=== PATIENT | female | born 2000 | race Caucasian/White ===

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

== ENCOUNTER → 2022-01-01 | Outpatient (CLI) | payer OTHER, SELFPAY ==
[2022-01-01 18:19] LABS: T4 Free Direct 1.24 ng/dL (0.76-1.46); Thyroid Stim Hormone (TSH) 1.54 uIU/mL (0.358-3.74)
== END | disposition home or self-care (01) ==
LOC: LAB 17:22
PROVIDERS: PCP Family Medicine; Visit Provider Family Medicine
DX: E03.9 Hypothyroidism, unspecified (principal)
CPT/HCPCS: 36415; 84439; 84443

== ENCOUNTER → 2022-02-23 | Outpatient (CLI) | payer OTHER, SELFPAY ==
[2022-02-23 14:37] LABS: Erythrocyte Sedimentation Rate 6 mm/hr (0-30)
[2022-02-23 15:30] LABS: ALB/GLOB Ratio 1.1 RATIO (0.9-2.4); AST(SGOT) 23 U/L (15-37); Alanine Aminotransfer ALT/SGPT 31 U/L (13-56); Albumin, Serum 3.9 g/dL (3.2-5.0); Alkaline Phosphatase 62 U/L (45-117); Anion Gap 6 (5-15); BUN 11 mg/dL (7-18); BUN/Creat Ratio 16.3 RATIO (10-20); Calcium,Total 9.1 mg/dL (8.5-10.1); Chloride 105 mmol/L (98-107); Creatinine, Serum 0.67 mg/dL (0.55-1.02); EST Glomerular Filtration Rate 119 mL/min (>60); Est Glom Filt Rate - Afr Amer 143 mL/min (>60); Globulin 3.6 g/dL (2.2-4.2); Glucose 73 mg/dL (74-106); Potassium 3.7 mmol/L (3.5-5.1); Protein, Total 7.5 g/dL (6.4-8.2); Sodium Level 140 mmol/L (136-145)
[2022-02-24 09:02] LABS: Vitamin B12 545 pg/mL (211-911)
[2022-03-01 03:07] LABS: Ceruloplasmin 49.6 mg/dL (19.0-39.0)
[2022-03-01 16:56] LABS: Arsenic 7245 10 ug/L (0-9); Copper, Serum or Plasma 215 ug/dL (80-158); Lead, Blood < 1 ug/dL (0-4)
== END | disposition home or self-care (01) ==
PROVIDERS: PCP Family Medicine; Referring Provider Psychiatry & Neurology Neurology; Visit Provider Psychiatry & Neurology Neurology
DX: G25.0 Essential tremor (principal)
CPT/HCPCS: 36415; 80053; 82140; 82175; 82390; 82525; 82607; 83655; 83825; 85652

== ENCOUNTER → 2022-04-13 | Outpatient (CLI) | payer OTHER, SELFPAY ==
[2022-04-13 16:54] LABS: ALB/GLOB Ratio 1.1 RATIO (0.9-2.4); AST(SGOT) 21 U/L (15-37); Alanine Aminotransfer ALT/SGPT 28 U/L (13-56); Albumin, Serum 3.9 g/dL (3.2-5.0); Alkaline Phosphatase 62 U/L (45-117); Anion Gap 7 (5-15); BUN 18 mg/dL (7-18); BUN/Creat Ratio 23.9 RATIO (10-20); Calcium,Total 8.7 mg/dL (8.5-10.1); Chloride 105 mmol/L (98-107); Creatinine, Serum 0.75 mg/dL (0.55-1.02); EST Glomerular Filtration Rate 104 mL/min (>60); Est Glom Filt Rate - Afr Amer 126 mL/min (>60); Globulin 3.6 g/dL (2.2-4.2); Glucose 82 mg/dL (74-106); Potassium 3.8 mmol/L (3.5-5.1); Protein, Total 7.5 g/dL (6.4-8.2); Sodium Level 139 mmol/L (136-145); T4 Free Direct 1.38 ng/dL (0.76-1.46); Thyroid Stim Hormone (TSH) 2.54 uIU/mL (0.358-3.74)
[2022-04-18 00:06] LABS: Ceruloplasmin 44.9 mg/dL (19.0-39.0)
[2022-04-18 09:04] LABS: Copper, Serum or Plasma 185 ug/dL (80-158)
== END | disposition home or self-care (01) ==
LOC: LAB 14:58
PROVIDERS: PCP Family Medicine; Visit Provider Psychiatry & Neurology Neurology
DX: G25.0 Essential tremor (principal)
CPT/HCPCS: 36415; 80053; 82390; 82525; 84439; 84443

== ENCOUNTER → 2024-03-17 | Outpatient (CLI) | payer BC, SELFPAY ==
[2024-03-17 17:38] LABS: T4 Free Direct 1.26 ng/dL (0.76-1.46); Thyroid Stim Hormone (TSH) 1.48 uIU/mL (0.358-3.74)
== END | disposition home or self-care (01) ==
LOC: LAB 16:45
PROVIDERS: PCP Family Medicine; Referring Provider Internal Medicine Endocrinology, Diabetes & Metabolism; Visit Provider Internal Medicine Endocrinology, Diabetes & Metabolism
DX: E03.9 Hypothyroidism, unspecified (principal)
CPT/HCPCS: 36415; 84439; 84443

== ENCOUNTER → 2024-05-22 | Outpatient (CLI) | payer BC, SELFPAY ==
[2024-05-22 17:57] LABS: Cholesterol 172 mg/dL (200); High Density Lipoprotein 63 mg/dL; Triglycerides 109 mg/dL; Very Low Density Lipoprotein 22 mg/dL (5-40)
== END | disposition home or self-care (01) ==
LOC: MFPLAB 15:29
PROVIDERS: PCP Family Medicine; Visit Provider Family Medicine
DX: Z13.220 Encounter for screening for lipoid disorders (principal)
CPT/HCPCS: 36415; 80061

== ENCOUNTER → 2025-02-08 | Outpatient (CLI) | payer BC, SELFPAY ==
[2025-02-08 12:53] LABS: Absolute Lymphocyte Count 2.16 X10^3/uL (0.83-4.51); Absolute Neutrophil Count 2.3 X10^3/uL (2.0-7.7); Basophil# 0.02 X10^3/uL; Basophil% 0.4 % (0-1); Hematocrit 39.7 % (37-47); Hemoglobin 13.4 g/dL (12.0-15.0); Lymphocyte # 2.16 X10^3/ul (0.83-4.51); Lymphocyte % 42.8 % (19-41); Mean Corp Hgb Conc 33.8 g/dL (32-36); Mean Corpuscular Volume 85.9 fL (81-99); Mean Platelet Vol. 9.4 fl (6.2-12.0); Monocyte# 0.42 X10^3/uL; Monocyte% 8.3 % (0-10); NRBC Flagged by Analyzer 0 % (0-5); Neutrophil # 2.34 X10^3/uL (2.7-7.7); Neutrophil % 46.3 % (47-70); Platelet Count 217 K/mm3 (150-450); RBC Distribution Width CV 12.4 % (11.6-14.6); RBC Distribution Width SD 38.7 fl (35.1-43.9); Red Blood Count 4.62 M/mm3 (4.2-5.4); White Blood Count 5.1 K/mm3 (4.4-11.0)
[2025-02-08 14:00] LABS: ALB/GLOB Ratio 1.6 RATIO (0.9-2.4); AST(SGOT) 19 U/L (<=31); Alanine Aminotransfer ALT/SGPT 14 U/L (<=34); Albumin, Serum 4.5 g/dL (3.5-5.0); Alkaline Phosphatase 68 U/L (35-104); Anion Gap 13 (5-15); BUN 15 mg/dL (4-19); BUN/Creat Ratio 18.1 RATIO (10-20); Calcium,Total 9.2 mg/dL (7.6-11.0); Carbon Dioxide 23.2 mmol/L (21.0-32.0); Chloride 104 mmol/L (98-108); Creatinine, Serum 0.82 mg/dL (0.70-1.20); EST Glomerular Filtration Rate 103 (>60); Globulin 2.8 g/dL (2.2-4.2); Glucose 71 mg/dL (70-99); Potassium 4.1 mmol/L (3.3-5.1); Protein, Total 7.3 g/dL (5.9-8.4); Sodium Level 140 mmol/L (133-145); Total Bilirubin 0.59 mg/dL (0.00-1.30)
[2025-02-08 14:22] LABS: Free T3 2.6 pg/mL (2.18-3.98); T3 Total - Triiodothyronine 1.09 ng/mL (0.80-2.00)
--- OUTSIDE RECORDS SUMMARY | 2025-02-08 22:07 | XMS RPT_ITS | CCD ---
Author Organization [facility] Care Team Providers Care Benefits Counselor Name Role Phone Dr. Alena Archuleta Primary Care Provider Dr. Alena Archuleta Referring Provider Quinn IS ARCHITECT, ROWAN Winter Attending Provider Alena Archuleta Unavailable Unavailable Unavailable Dr. Maggie Montes Attending Unavailable Geremias, Dr. Alena Rodríguez Primary Care Unavail able Dr. Maggie Montes Referring Unavailable Geremias, Dr. Alena Rodríguez Primary Care Unavail able Dr. Maggie Montes Referring Unavailable Dr. Maggie Montes Attending Unavailable Alena Archuleta MD Primary Care Provider 1( [phone] MAGGIE MONTES Attending Unavailable ALENA ARCHULETA Primary Care Unavailable DAQUAN OSCAR Attending Unavailable ALENA ARCHULETA Primary Care Unavailable ALENA ARCHULETA Primary Care Unavailable Alena Archuleta MD Primary Care Provider CAMDEN BERNARDO Attending Unavailable MAGGIE MONTES Referring Unavailable INGRIDIFFALEAN REYES Primary Care Unavailable FRANKIE SANCHEZ Attending Unavailable JOLLIFF ALENA REYES Primary Care Unavailable Jolliff, Alena S Referring Unavailable Jolliff, Alena S Primary Care Unavailable Mono Galeas NP Attending Unavailable Rigoberto Groevr Attending Unavailable ReillyRigoberto Referring Unavailable Jolliff, Alena S Primary Care Unavailable Jolliff, Alena S Attending Unavailable Jolliff, Alena S Primary Care Unavailable Jolliff, Alena S Referring Unavailable Oj Lai Attending Unavailable Jolliff, Alena S Primary Care Unavailable Jolliff, Alena S Referring Unavailable Alena Archuleta Primary Care Unavailable Rigoberto Grover Attending Unavailable Alena Archuleta Referring Unavailable Alena Archuleta Primary Care Unavailable Maggy Ball NP Attending Unavailable Allergies Allergy Classification Reported Allergen(s) Allergy Type Date of Onset Reaction(s) Facility (5 sources) carbinoxamine / Pseudoephedrine; Translations: [CARBINOXAMINE-PS EUDOEPHEDRINE] Drug Allergy 3 Hives, Fever [facility] (1 source) Seasonal Allergies: Uncoded; Translations: [Seasonal Allergies: Uncoded] Propensity to adverse reactions (disorder) 5 [facility] Repository Medications Current Medications Medication Drug Class(es) Dates Sig (Normalized) Sig (Original) cetirizine hydrochloride 10 mg oral capsule (3 sources) Histamine-1 Receptor Antagonist Start: 10-02-2021 take 1 capsule by mouth once daily Cetirizine (Zyrtec) 10 mg capsule Active 10 MG PO DAILY October 02, 2021 1:00am Desogestrel-Ethinyl Estradiol (10 sources) Progestin, Estrogen Start: 03-26-2022 Desogestrel-Ethin yl Estradiol (Apri) 0.15-0.03 mg tablet Active 1 TABLET PO daily March 26, 2022 10:24am Start: 12-11-2021 End: 03-26-2022 Desogestrel-Ethinyl Estradio l (Apri) 0.15-0.03 mg tablet Discontinued 1 TABLET PO daily December 11, 2021 4:30pm March 26, 2022 10:25am Start: 12-11-2021 Desogestrel-Et hinyl Estradiol (Apri) 0.15-0.03 mg tablet Active 1 TABLET PO daily December 11, 2021 4:30pm Start: 10-02-2021 End: 12-11-2021 Desogestrel-Ethinyl Estradio l (Apri) 0.15-0.03 mg tablet Discontinued 1 TABLET PO daily October 02, 2021 4:02pm December 11, 2021 4:31pm Start: 10-02-2021 End: 12-11-2021 Desogestrel-Ethinyl Estradio l (Apri) 0.15-0.03 mg tablet Discontinued 1 TABLET PO daily October 02, 2021 1:00am December 11, 2021 4:31pm desogestreL-ethi nyl estradioL (Apri) 0.15-0.03 mg tablet Take 1 tablet by mouth once daily. Active desogestreL-ethi nyl estradioL (Apri) 0.15-0.03 mg tablet Take 1 tablet by mouth once daily. 0 Active levothyroxine sodium 0.05 mg oral capsule (9 sources) l-Thyroxine Start: 10-02-2021 take 62.5 ug by mouth once daily Levothyroxine Active 62.5 MCG PO DAILY October 02, 2021 3:54pm Start: 10-02-2021 End: 10-02-2021 take 75 ug by mouth once daily Levothyroxine Discontin ued 75 MCG PO DAILY October 02, 2021 1:00am October 02, 2021 3:54pm take 1 tablet by ivon th once daily before mealtime levothyroxine (Synthroid, Levoxyl) 50 mcg tablet Take 1 tablet (50 mcg) by mouth once daily in the morning. Take before meals. TAKE DIRECTED Active Multivitamin preparation (3 sources) Start: 10-02-2021 take 1 tablet by mouth once daily Multivitamin Active 1 TABLET PO DAILY October 02, 2021 3:45pm Start: 10-02-2021 take 1 tablet by ivon th once daily Multivitamin Active 1 TABLET PO DAILY October 02, 2021 1:00am polyethylene glycol 3350 03179 mg powder for oral solution (3 sources) Osmotic Laxative Start: 10-02-2021 Polyethylene Glycol 3350 (Miralax) 17 gram/dose powder Active 17 GM PO DAILY October 02, 2021 1:00am propranolol hydrochloride 20 mg oral tablet (3 sources) beta-Adrenergic Mitch Start: 02-28-2024 take 1.5 tablets by mouth twice daily propranolol (Inderal) 20 mg tablet Indications: Essential tremor Take 1.5 tablets (30 mg) by mouth 2 times a day. 270 tablet 3 02/28/2024 Active Start: 08-29-2023 End: 02-28-2024 take 1 tablet by mouth twice daily propranolol (Inderal) 20 mg tablet Indications: Essential tremor Take 1 tablet (20 mg) by mouth 2 times a day. 60 tablet 5 08/29/2023 02/28/2024 Discontinued (Reorder) Completed/Discontinued Medications Medication Drug Class(es) Dates Sig (Normalized) Sig (Original) Norethindrone-Ethi n Estradiol (3 sources) Estrogen Start: 10-02-2021 End: 10-02-2021 take 0.75699431397759851 ug by mouth once daily Norethindrone-Ethin Estradiol (Nortrel 1/35 (21)) 1-35 mg-mcg (21) tablet Discontinued 1 TABLET PO DAILY October 02, 2021 3:44pm October 02, 2021 4:02pm Start: 10-02-2021 End: 10-02-2021 take 0.48201332562064521 ug by mouth once daily Norethindrone-Ethin Estradiol (Nortrel 1/35 (21)) 1-35 mg-mcg (21) tablet Discontinued 1 TABLET PO DAILY October 02, 2021 1:00am October 02, 2021 4:02pm gabapentin 100 mg oral capsule (8 sources) Anti-epileptic Agent Start: 04-04-2023 End: 02-28-2024 take 2 capsules by mouth three times daily Gabapentin 100 MG Oral Capsule TAKE 2 CAPSULES 3 TIMES DAILY. Quantity: 540 Refills: 3 Ordered: 04-Apr-2023 Maggie Montes MD Start : 04-Apr-2023 Active Can increase to 300mg three times a day for essential tremor if symptoms not controlled and not too sleepy Problems Active Problems Problem Classification Problem Date Documented Da te Episodic/Chronic Menstrual disorders (5 sources) Menorrhagia; Translations: [Excessive and frequent menstruation with regular cycle] Chronic Other hereditary and degenerative nervous system conditions (4 sources) Essential tremor; Translations: [Essential tremor] Onset: 08-29-2023 Chronic Other hereditary and degenerative nervous system conditions (2 sources) Essential tremor; Translations: [Essential tremor] Onset: 08-29-2023 Chronic Other nervous system disorders (4 sources) Tremor, unspecified; Translations: [Tremor, unspecified] Onset: 04-23-2023 Episodic Other nutritional; endocrine; and metabolic disorders (1 source) Disorder of copper metabolism; 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, unspecified] 01-27-2024 Chronic Other nutritional; endocrine; and metabolic disorders (2 sources) Disorder of copper metabolism, unspecified; 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, unspecified (Multi)] Onset: 01-27-2024 Chronic Other upper respiratory infections (2 sources) Acute upper respiratory infection, unspecified; Translations: [Acute pharyngitis, unspecified] Onset: 01-09-2024 Episodic Thyroid disorders (4 sources) Hypothyroidism; Translations: [Hypothyroidism, unspecified] Onset: 08-13-2023 Chronic Past or Other Problems Problem Classification Problem Date Documented Da te Episodic/Chronic Other nervous system disorders (8 sources) Tremor; Translations: [Abnormal involuntary movements] Onset: 06-23-2023 06-23-2023 Episodic Other screening for suspected conditions (not mental disorders or infectious disease) (8 sources) Raised blood copper level; Translations: [Other abnormal blood chemistry] Onset: 06-23-2023 06-25-2023 Episodic Unclassified (3 sources) Onset: 06-25-2023 Resolved: 01-27-2024 06-25-2023 Results Test Name Value Interpretation Reference Range Facility Urgent Care Visit Reporton 0 10-23-2024 Urgent Care Visit Report [facility] [address], [address] [place] [address] OFFICE VISIT Date of Service: 10/23/24 MR#: [id number] Acct: [id number] Name: BAMBI FRAGOSO BRIAN Rep #: [id number] : 2000 Provider: ROWAN veronica Age/Sex: 24/F Location[place] [facility] [place] Status: Signed Intake Vital Signs 08/31/24 13:18 10/23/24 13:34 Height 5 ft 8 in BP 106/60 Blood Pressure Location Lt brachial Position Sitting Respiration 14 Pulse 71 Pulse Source NIBP Temp 97.9 F Temp Source Oral Pulse Oximetry (%) 96 Oxygen Delivery Method room air Intake Visit Reasons: travel for work congestion cough headache BA Chief Complaint: Pal, BA, cough, congest 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 recent travel for work. denies fever, ST PFSH Medical History Constipation Benign essential tremor Raynauds disease Asthma Hypothyroidism Surgical History History of placement of ear tubes Family History Mother Beena-Danlos syndrome Father Prostate cancer Grandfather Heart disease Sister Beena-Danlos syndrome Social History household members: family Smoking Status: Never smoker alcohol intake: never substance use type: does not use diet: other what type of physical activity do you participate in: walking seatbelt use: always do you feel safe at home: Yes additional social history: single HPI HPI Chief Complaint: Pal, BA, cough, congest Details: BAMBI FRAGOSO, is a 24 F who presents to the office today for concerns regarding headache, body ache, cough, and congestion for the last 3 days. She does acknowledge recent travel for work. She denies fever or sore throat. Prior to evaluation, she underwent respiratory viral panel that is negative for Flu A, Flu B, and COVID-19. ROS Const Constitutional: Positive for body ache, chills, headache(s) and change in appetite (reduced); No fatigue, fever(s), night sweats, snoring or abnormal sleep pattern Eyes Eyes: No blurry vision, change in vision, double vision, irritation, discharge, vision loss, dry eyes, bulging eyes, floaters, visual disturbances, eye pain, Light sensitivity, spots in vision, tunnel vision or other ENT ENT: Positive for nasal congestion, sinus pressure, sinus pain (worse when bending over), nasal discharge (Yellow), headache(s) and hoarseness; No ear or mastoid pain, ear discharge, ear pressure, tinnitus, dizziness/vertigo, nosebleed/epistaxis, nose pain, post nasal drip, facial pain, dental pain, difficulty swallowing, bad breath, lip swelling, mouth lesions, mouth pain, neck pain, sore throat, tongue swelling or throat swelling Resp Respiratory: Positive for cough Cough: Yes non-productive; No change in phlegm color, chest congestion, hemoptysis, pain on inspiration, shortness of breath, pain with cough, snoring, stridor or wheezing Cardio Cardiology: No chest pain at rest, chest pain with exertion, shortness of breath, dyspnea on exertion or lightheadedness Gastro GI: No abdominal pain, change in bowel habits, constipation, diarrhea, difficulty swallowing, nausea/dyspepsia or vomiting Genitourinary-Female: No burning urination or urinary frequency Musc Musculoskeletal: No joint pain or neck pain Skin Skin: No rash Neuro Neurology: Positive for headache(s); No visual disturbances Psych Psychiatric: No abnormal sleep pattern and Positive for change in appetite (reduced) Endo Endocrine: No fatigue Aller/Imm Allergy/Immunologic: No lip swelling, throat swelling, tongue swelling or wheezing Exam Const General: cooperative, healthy appearing, comfortable and no acute distress Orientation: alert, awake and oriented x3 HENMT Head: normal to inspection and normocephalic Ears: hearing grossly normal bilaterally, external ears normal and TM's normal bilaterally Nose: external nose normal, nares normal and no nasal discharge Face and sinus: normal facial exam and sinus tenderness ethmoid Mouth: oral mucosae normal, lip normal, tongue normal, oropharynx normal and moist mucous membranes Throat: posterior oropharynx normal, tonsils normal, uvula midline and no postnasal drainage Eyes General: appearance normal, both eyes and all related structures Neck Neck: normal visual inspection and no lymphadenopathy Carotids: normal carotid upstroke Lymphatic: no lymphadenopat (more content not included)... Normal [facility] Senior Java Programmer Office Visit Reporton 08-31-2024 Senior Java Programmer Office Visit Report [facility] [address], [address] [place] [address] OFFICE VISIT Date of Service: 08/31/24 MR#: [id number] Acct: [id number] Name: RICHMONDBAMBI ANN Rep #: [id number] : 2000 Provider: ROWAN robles Age/Sex: 24/F Location[place] [facility] [place] Status: Signed Intake Vital Signs 03/19/24 08:25 08/31/24 13:11 08/31/24 13:18 Height 5 ft 8 in 5 ft 8 in 5 ft 8 in Weight: 145 lb 147 lb 2 oz BMI 22.0 22.4 BP 100/63 110/72 Blood Pressure Location Lt brachial Position Sitting Pulse 66 Pulse Source Monitor Pulse Oximetry (%) 99 Oxygen Delivery Method room air 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: Annual Heel Cementer Machine Required: No Is patient in pain?: No Allergies Seasonal Allergies: Uncoded Allergy (Unknown, Verified 08/31/24 13:11) NEEDS FOLLOW-UP Medications ???Medication ???Instructions ???Recorded ???Confirmed ???Type multivitamin 1 tab PO DAILY 10/02/21 08/31/24 History cetirizine 10 mg capsule (Zyrtec) 10 mg PO DAILY 12/07/22 08/31/24 History psyllium husk 0.4 gram capsule 0.4 g PO DAILY 01/09/24 08/31/24 History (Metamucil) guar gum 1 tbsp PO DAILY 03/19/24 08/31/24 History propranolol 20 mg tablet 30 mg PO BID 03/19/24 08/31/24 History Enskyce 0.15 mg-0.03 mg tablet 1 tab PO QDAY #84 tabs 04/30/24 08/31/24 Rx (desogestrel-ethinyl estradiol) levothyroxine 75 mcg tablet 75 mcg PO .6 days/week #90 tabs 04/30/24 08/31/24 Rx Is last menstrual period known: Yes Last Menstrual Period: 08/03/24 Post menopausal: No Patient : No : No Control Method: OCP PFSH Medical History Constipation Benign essential tremor Raynauds disease Asthma Hypothyroidism Surgical History History of placement of ear tubes Family History Mother Beena-Danlos syndrome Father Prostate cancer Grandfather Heart disease Sister Beena-Danlos syndrome Social History household members: family Smoking Status: Never smoker alcohol intake: never substance use type: does not use diet: other what type of physical activity do you participate in: walking seatbelt use: always do you feel safe at home: Yes additional social history: single History 0 Elective abortions Hx Para Spontaneous abortions Hx # Term Pregnancies Ectopic pregnancies Hx # Pregnancies Multiple births # of living children HPI Encounter for routine gynecological examination Details: BAMBI FRAGOSO is a 24 year old who presents for annual exam. Denies concerns. Never sexually active. Maternal grandmother with breast cancer. Negative genetics. Wishes to continue OCP for heavy menses. Declines pelvic exam Last mammogram: age 37 Female Reproductive History Last Menstrual Period: 08/03/24 Cycle Length: 21-35 Bleeding Duration: 5 Questions: metorrhagia: No and sexually active: No ROS Const Constitutional: Denies fatigue, weight gain or weight loss Cardio Card: Denies chest pain Resp Resp: Denies cough or dyspnea on exertion GI GI: Denies abdominal pain, bloating, change in stool character, constipation or vomiting : Reports as per HPI; Denies difficulty voiding, pelvic pain, urinary frequency, urinary incontinence, urinary urgency, vaginal discharge or vaginal pruritus Exam Const General: cooperative, healthy appearing, no acute distress and well developed Orientation: alert, oriented to person and oriented to place HENMT Head: normal to inspection Neck Neck: normal visual inspection Chest Breast inspection: normal inspection of the breasts and normal inspection of the axillae Breast palpation: normal palpation of the breasts, normal palpation of the axillae and no axillary lymphadenopathy Resp Effort Inspection: normal respiratory effort GI Palpation: soft, no masses and nontender Rectal Exam: deferred Neuro General: patient alert and patient oriented x3 Psych Affect: normal affect Coding Level of Care Code Off vis,est,prev 18-39yrs Diagnoses Encounter for gynecological examination without abnormal finding Z01.419 Gynecological examination findings: abnormal findings ABSENT Menorrhagia with regular cycle N92.0 Assessment and Plan Assessment and Plan (1) Encounter for routine gynecological examination: Qualifiers: Gynecological examination findings: abnormal findings ABSENT Qualified Code(s): Z01.419 - Encounter for gynecological examination (general) (routine) without abnormal findings (2) Menorrhagia with regular cycle: Status: Acute Plan Completed breast and (more content not included)... Normal [facility] Lipid Profileon 05-22-2024 Cholesterol [Mass/Vol] 172 mg/dL Normal 200 [facility] Comment on above: Result Comment: <200 mg/dL Desirable 200-240 mg/dL Borderline >240 mg/dL High Risk Performed By: #### L 500.4100 #### [facility] [address] [place], [address] Cholesterol in HDL [Mass/Vol] 63 mg/dL Normal [facility] Comment on above: Result Comment: The drugs N-Acetylcysteine and Metamizole may falsely depress this assay. Reference Range HDL <40 mg/dL Low HDL Cholesterol HDL >or= 60 mg/dL High HDL Cholesterol Performed By: #### L 500.4100 #### [facility] [address] [place], [address] Cholesterol in LDL [Mass/Vol] 87 mg/dL Normal 0-130 [facility] Comment on above: Performed By: #### L 500.4100 #### [facility] [address] [place], [address] Cholesterol in VLDL [Mass/Vol] 22 mg/dL Normal 5-40 [facility] Comment on above: Performed By: #### L 500.4100 #### [facility] [address] [place], [address] Triglyceride [Mass/Vol] 109 mg/dL Normal [facility] Comment on above: Result Comment: The drugs N-Acetylcysteine and Metamizole may falsely depress this assay. Serum Triglycerides Reference Interval Normal <150 mg/dL Borderline high 150 - 199 mg/dL High 200 - 499 mg/dL Very High > or = 500 mg/dL Performed By: #### L 500.4100 #### [facility] [address] [place], [address] Endocrinology Visit Reporton 03-19-2024 Endocrinology Visit Report [facility] [address] [place] [address]. [address] [place], [place] [id number] OFFICE VISIT Date of Service: 03/19/24 MR#: [id number] Acct: [id number] Name: BAMBI FRAGOSO BRIAN Rep #: [id number] : 2000 Provider: Harini Carcamo Age/Sex: 24/F [place] [facility] [place] Status: Signed Intake Vital Signs 01/09/24 11:01 03/19/24 08:25 Height 5 ft 8 in 5 ft 8 in Weight: 130 lb 145 lb BMI 19.8 22.0 BP 92/52 L 100/63 Blood Pressure Location Lt brachial Lt brachial Position Sitting Sitting Respiration 16 Pulse 80 66 Pulse Source Monitor Monitor Temp 98.9 F Temp Source Temporal Pulse Oximetry (%) 99 99 Oxygen Delivery Method room air room air Intake Visit Reasons: 1 Y FU 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 Accompanied by: Mother Is patient in pain?: No Allergies Seasonal Allergies: Uncoded Allergy (Unknown, Verified 03/19/24 08:28) NEEDS FOLLOW-UP Medications ???Medication ???Instructions ???Recorded ???Confirmed ???Type multivitamin 1 tab PO DAILY 10/02/21 03/19/24 History cetirizine 10 mg capsule (Zyrtec) 10 mg PO DAILY 12/07/22 03/19/24 History levothyroxine 50 mcg tablet 50 mcg PO .COMPLEX #36 tabs 06/20/23 03/19/24 Rx psyllium husk 0.4 gram capsule 0.4 g PO DAILY 01/09/24 03/19/24 History (Metamucil) desogestrel 0.15 mg-ethinyl 1 tab PO QDAY #28 tabs 03/04/24 03/19/24 Rx estradiol 0.03 mg tablet (Apri) guar gum 1 tbsp PO DAILY 03/19/24 03/19/24 History levothyroxine 75 mcg tablet 75 mcg PO .6 days/week #90 tabs 03/19/24 03/19/24 Rx propranolol 20 mg tablet 30 mg PO BID 03/19/24 03/19/24 History PFSH Medical History (Updated 03/19/24 @ 09:[address] Rigoberto Grover MD) Constipation Benign essential tremor Raynauds disease Asthma Hypothyroidism Surgical History History of placement of ear tubes Family History Mother Beena-Danlos syndrome Father Prostate cancer Grandfather Heart disease Sister Beena-Danlos syndrome Social History household members: family Smoking Status: Never smoker alcohol intake: never substance use type: does not use diet: other what type of physical activity do you participate in: walking seatbelt use: always do you feel safe at home: Yes additional social history: single HPI HPI Chief Complaint: Thyroid Details: BAMBI FRAGOSO, is a 24 F who presents to the office today for follow up. 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 TSH is 1.28 She has chronic constipation and it is worsened by being started on propranolol which seems to be making it worse. She is trying to eat a high fiber diet. She was told that oats are low in fiber and bread is high in fiber. ROS Const Constitutional: No anorexia, excessive sweating, malaise, night sweats, weight change or change in appetite Eyes Eyes: No change in vision ENT ENT: No hearing loss, nasal congestion or difficulty swallowing Cardio Cardiology: No chest pain at rest, excessive sweating, shortness of breath, dyspnea on exertion, irregular heart rhythm or palpitations Musc Musculoskeletal: No abnormal gait, joint pain, numbness or tingling Neuro Neurology: No abnormal gait, memory loss, numbness or tingling Psych Psychiatric: No change in appetite, No memory loss and No Thoughts of harming yourself/Others Resp Respiratory: No cough, chest congestion or shortness of breath Gastro GI: Positive for constipation; No difficulty swallowing Genitourinary-Female: No burning urination Skin Skin: No hair loss in leg, itchy eyes, rash or skin ulcer Endo Endocrine: No excessive sweating or weight change Aller/Imm Allergy/Immunologic: No itchy eyes Exam Const General: cooperative, healthy appearing, comfortable, no acute distress, well developed and not cushingoid Nutritional Appearance: well nourished Orientation: alert, awake and oriented x3 HENMT Head: normal to inspection Ears: hearing grossly normal bilaterally Nose: external nose normal Mouth: oral mucosae normal Eyes General: appearance normal, both eyes and all related structures Alignment and Position: alignment normal Periorbital: periorbital findings normal Eyelids: eyelids normal Conjunctivae: conjunctivae normal Neck Neck: normal visual inspection Neck mass: No Thyroid: thyroid normal Lymphatic: no lymphadenopathy noted Chest Chest palpation inspection: normal inspection of the chest Resp Effort Inspection: normal respiratory effort, able to speak in complete sentences, symmetric chest movement, no audible wheezes and no cough Auscultation: Bilateral: Clear to Auscultation Card (more content not included)... Normal [facility] T4 Free Directon 03-17-2024 T4 FREE DIRECT 1.26 ng/dL Normal 0.76-1.46 [facility] Comment on above: Performed By: #### L 506.0400, L501.9520 #### [facility] [address] [place], [address] Thyroid Stim Hormone (TSH)on 03-17-2024 TSH 1.48 uIU/mL Normal 0.358-3.74 [facility] Comment on above: Performed By: #### L 506.0400, L501.9520 #### [facility] [address] [place], [address] Urgent Care Visit Reporton 0 01-09-2024 Urgent Care Visit Report [facility] [address], [address] [place], [place] [address] OFFICE VISIT Date of Service: 01/09/24 MR#: [id number] Acct: [id number] Name: BAMBI FRAGOSO BRIAN Rep #: [id number] : 2000 Provider: ABBY Panchal Age/Sex: 23/F Location: [facility] Status: Signed Intake Vital Signs 08/26/23 09:39 01/09/24 06:43 01/09/24 11:01 Height 5 ft 8 in 5 ft 8 in 5 ft 8 in Weight: 130 lb BMI 19.8 BP 92/52 L Blood Pressure Location Lt brachial Position Sitting Respiration 16 Pulse 80 Pulse Source Monitor Temp 98.9 F Temp Source Temporal Pulse Oximetry (%) 99 Oxygen Delivery Method room air Intake Visit Reasons: SORE THROAT Chief Complaint: Sore throat Allergies Seasonal Allergies: Uncoded Allergy (Unknown, Verified 08/26/23 09:32) NEEDS FOLLOW-UP Medications ???Medication ???Instructions ???Recorded ???Confirmed ???Type multivitamin 1 tab PO DAILY 10/02/21 01/09/24 History cetirizine 10 mg capsule (Zyrtec) 10 mg PO DAILY 12/07/22 01/09/24 History levothyroxine 50 mcg tablet 50 mcg PO .COMPLEX #36 tabs 06/20/23 01/09/24 Rx desogestrel 0.15 mg-ethinyl 1 tab PO QDAY #84 tabs 08/26/23 01/09/24 Rx estradiol 0.03 mg tablet (Apri) azithromycin 250 mg tablet See Rx Instructions PO .COMPLEX #6 01/09/24 01/09/24 Rx tabs methylprednisolone 4 mg tablets in 4 mg PO PER PKG DIR 6 days #21 tabs 01/09/24 01/09/24 Rx a dose pack (Medrol (Kali)) propranolol 20 mg tablet 20 mg PO BID 01/09/24 01/09/24 History psyllium husk 0.4 gram capsule 0.4 g PO DAILY 01/09/24 01/09/24 History (Metamucil) [facility] Medical History Asthma Benign essential tremor Hypothyroidism Raynauds disease Surgical History History of placement of ear tubes Family History Mother Beena-Danlos syndrome Father Prostate cancer Grandfather Heart disease Sister Beena-Danlos syndrome Social History household members: family Smoking Status: Never smoker alcohol intake: never substance use type: does not use diet: other what type of physical activity do you participate in: walking seatbelt use: always do you feel safe at home: Yes additional social history: single HPI HPI Chief Complaint: Sore throat Details: BAMBI FRAGOSO, is a 23 F who presents to the office today for complaint of sore throat for the past 5 days. Patient denies hemoptysis, shortness of breath or difficulty breathing. No fever, chills, sweats. No nausea, vomiting or diarrhea. No other associated symptoms or alleviating/aggravating factors. ROS Const Constitutional: No other (6 system ROS completed with pertinent findings in the HPI otherwise normal.) Exam Const General: cooperative and healthy appearing HENMT Head: normal to inspection Ears: hearing grossly normal bilaterally, TM's normal bilaterally and EAC's normal Nose: external nose normal and nasal discharge clear Mouth: oral mucosae normal Throat: abnormal tonsil bilaterally Resp Effort Inspection: normal respiratory effort Auscultation: Bilateral: Clear to Auscultation Cardio Palpation: normal PMI Rate: regular rate Rhythm: regular rhythm Neuro General: patient alert and CN's II-XI intact bilaterally Psych Appearance: grossly normal Mental Status: mental status grossly normal Results POC Farida Rapid Strep POC Farida Rapid Strep Negative Last Edit by Caren Carrillo on 01/09/24 11:22 Coding Level of Care Code Off vis,new,level 3 Diagnoses Acute pharyngitis J02.9 Assessment and Plan Assessment and Plan (1) Acute pharyngitis: Status: Acute Orders: Orders POC Farida Rapid Strep A Today J02.9 - Acute pharyngitis, unspecified Medications: New methylprednisolone (Medrol (Kali)) 4 mg PO PER PKG DIR 21 tabs 0RF 6 days azithromycin take 500 mg today (day 1), then 250 mg for 4 days (days 2-5) PO 6 tabs 0RF Plan Azithromycin and Medrol Dosepak as prescribed today. Encouraged to get plenty of rest, drink lots of clear liquids, and use Tylenol or Ibuprofen (unless contraindicated) for fever and comfort. Patient also educated on other symptomatic management techniques. To be seen in 7-10 days if no improvement; sooner if worsening of symptoms. Patient advised of potential red flags and when appropriate to report to the ED. Patient verbalized understanding and agreement with all the above. 01/09/24 1336 Date Oj Saleh Signature: Date (if applicable) CC: Normal [facility] 12-26-2023 Copper [Mass/Vol] 228.6 ug/dL High 80.0-155.0 [facility] Comment on above: Result Comment: INTE RPRETIVE INFORMATION: Copper, Serum or Plasma Elevated results may be due to skin or collection-related contamination, including the use of a noncertified metal-free collection/transport tube. If contamination concerns exist due to elevated levels of serum/plasma copper, confirmation with a second specimen collected in a certified metal-free tube is recommended. Serum copper may be elevated with infection, inflammation, stress, and copper supplementation. In females, elevated copper may also be caused by oral contraceptives and (concentrations may be elevated up to 3 times normal during the third trimester). This test was developed and its performance characteristics determined by [facility]. It has not been cleared or approved by the US Food and Drug Administration. This test was performed in a CLIA certified laboratory and is intended for clinical purposes. Performed By: [facility] [address] [place] [address] House Worker General: Fran Maldonado MD, PhD CLIA Number: [id number] Performed By: #### 5 631-7 #### [facility] ([place]) ([id number]) [address] [place] [address] Thyrotropinon 08-13-2023 TSH Qn 2.37 m[IU]/L Normal 0.44-3.98 [facility] Comment on above: Order Comment: TSH t esting is performed using different testing methodology at [facility] than at other [facility]. Direct result comparisons should only be made within the same method. Performed By: #### 3 016-3 #### RUTHIE Rush ([id number]) [facility] ([facility]) [address] [place] [address] Thyroxine.freeon 08-13-2023 Free T4 [Mass/Vol] 1.27 ng/dL Normal 0.78-1.48 [facility] Comment on above: Order Comment: Thyro xine Free testing is performed using different testing methodology at [facility] than at other [facility]. Direct result comparisons should only be made within the same method. Performed By: #### 3 024-7 #### RUTHIE Rush ([id number]) [facility] ([facility]) [address] [place] [address] Triiodothyronine.freeon 12-2 Free T3 [Mass/Vol] 2.9 pg/mL Normal 2.3-4.2 [facility] Comment on above: Performed By: #### 3 051-0 #### RUTHIE CISCOSIVAN Rush ([id number]) [facility] ([facility]) [address] [place] [id number] Chart Updateon 05-03-2023 Chart Update Chart Update Called pt back. Serum copper remains elevated, However, serum ceruloplasmin is NOT LOW as is expected in Miguel disease, her 24 hour urine copper levels are NORMAL range, and she has seen an opthalmologist whom has r/o KF rings. This is not consistent w miguel'disease. also touched base w Dr Oscar from hepatology - he states serum copper is actually typically Low in miguel's disease. I did explain to patient that i am not sure why her copper is high, Saw package designer locally whom stated needed robert GI consult for miguel's disease.. however has also already seen GI whom stated it is not miguel's disease I recommended she keep her appointment w Dr Oscar for ease of mind. The cause of her elevated Copper is unclear to me. I did make a referral to toxicology for their input as well. All questions were answered. Signatures Electronically signed by : Maggie Montes MD; May 03 2023 1:28PM EST (Author) Normal [facility] COPPERon 04-28-2023 COPPER 248.6 ug/dL High 80.0-155.0 [facility] Comment on above: Result Comment: INTE RPRETIVE INFORMATION: Copper, Serum or Plasma Elevated results may be due to skin or collection-related contamination, including the use of a noncertified metal-free collection/transport tube. If contamination concerns exist due to elevated levels of serum/plasma copper, confirmation with a second specimen collected in a certified metal-free tube is recommended. Serum copper may be elevated with infection, inflammation, stress, and copper supplementation. In females, elevated copper may also be caused by oral contraceptives and (concentrations may be elevated up to 3 times normal during the third trimester). This test was developed and its performance characteristics determined by [facility]. It has not been cleared or approved by the US Food and Drug Administration. This test was performed in a CLIA certified laboratory and is intended for clinical purposes. Performed By: [facility] [address] [place] [address] House Worker General: Fran Maldonado MD, PhD CLIA Number: [id number] Performed By: #### C OPPR #### On license of [facility] [address] [place] [address] Copper, Serumon 04-24-2023 Copper [Mass/Vol] 248.6 ug/dL above high threshold 80.0-155.0 [facility] Work Phone: Comment on above: INTERPRETIVE INFORMA TION: Copper, Serum or PlasmaElevated results may be due to skin or collection-related contamination, including the use of a noncertified metal-free collection/transport tube. If contamination concerns exist due to elevated levels of serum/plasma copper, confirmation with a second specimen collected in a certified metal-free tube is recommended.Serum copper may be elevated with infection, inflammation, stress, and copper supplementation. In females, elevated copper may also be caused by oral contraceptives and (concentrations may be elevated up to 3 times normal during the third trimester).This test was developed and its performance characteristics determined by [facility]. It has not been cleared or approved by the US Food and Drug Administration. This test was performed in a CLIA certified laboratory and is intended for clinical purposes.Performed By: [facility] [place], [place] [address]Uanwqzpixp Director: Fran Maldonado MD, PhDCLIA Number: [id number] MRI Brain without Contraston 04-23-2023 MR Brain WO contrast Normal [facility] Work Phone: COPPERon 04-12-2023 COPPER Canceled Normal [facility] Comment on above: Order Comment: TEST COPPER WAS CANCELLED, 04/12/2023 13:42 LOST IN LAB. Performed By: #### C OPPR #### [facility] [address] [place] [address] Copper, Serumon 04-04-2023 Copper [Mass/Vol] Canceled [facility] Work Phone: Office Visit (Neuro-Movement )on 04-04-2023 Follow-up visit Provider Impressions Bambi is a 23-year-old right-handed girl with history of hypothyroidism, childhood asthma (well-controlled without medication), heavy menses on oral contraceptives who presented with 6-7 years of bilateral (left worse than right) hand tremor is especially worse with stress. No bradykinesia, anosmia. She does have significant constipation since childhood and possible dream enactment. Her tremor affects her activities of daily living - making it difficult to pour water, hold more things on her plate, give presentation without looking nervous. She saw neurology at [facility] and was diagnosed with essential tremor and started on gabapentin 100 mg 3 times daily which seems to be helpful but not enough. Denies side effects. Exam notable for bilateral postural and action tremor; no rest tremor. Slowed finger tapping and toe/heel tapping on the right compared to the left. She had significant paratonia in all limbs but no rigidity. No other parkinsonian features on exam. No KF ring. Spiral test consistent with action tremor. She had a high random serum copper level, which raised the concern of Miguel disease. Her work-up showed normal 24-hour urine copper, high ceruloplasmin level, normal liver function test. (ceruloplasmin is LOW in Miguel) Impression: History and exam is consistent with essential tremor. No evidence of Miguel disease. Given she had asymmetric finger, toe and heel tapping, will obtain MRI brain without contrast to further assess. It is unclear why her prior random serum copper was high, and this could be due to collection error (do not use a metal free tube); therefore will repeat the test. For symptom management, gabapentin is a good medication and she has plenty of room to increase the dose. Primidone was not good in the setting of OCP use; we need to be cautious with propranolol use given history of asthma -could consider future use if asthma is no longer an issue and gabapentin does not work well enough.. Plan: -MRI brain without contrast -repeat random serum copper level -increase gabapentin to 200mg three times a day; after 1 week, she can increase to 300mg TID if symptoms are still not well-controlled and minimal side effect -can try weighted utensils -resources: [email or web address] Niki Richards MD PGY4 Neurology Patient Discussion/Summary It was very nice to meet you in the movement disorder clinic today. You were being seen for tremor. We do not think you have Miguel's disease. We agree with your [facility] neurologist that you have essential tremor. Essential [email or web address].org is a good web site for resources. We will get some blood work and an MRI of your brain to make sure everything is ok. For symptom control, gabapentin is a good medication. You can do 200mg three times a day; if you are doing fine on gabapentin (not too sleepy) after 1 week but still have bothersome tremor, you can increase to 300mg three times a day. Since you outgrew your asthma, we could consider propranolol in the future. Primidone is not a good choice while you are on oral contraceptives. You can try weighted (heavier) utensils to help with eating. You can try to get filtered water. Return to clinic in 6 months or so. Niki Richards MD Movement Disorders Clinic Attending Note I saw and evaluated the patient. I personally obtained the atkins and critical portions of the history and physical exam or was physically present for atkins and critical portions performed by the trainee. I reviewed the trainee's documentation and discussed the patient with the trainee. I agree with the trainee's medical decision making, as documented on the trainee's note. Comments/Additional Findings: Normal 24 hour urine, no KF rings and HIGH rather than low ceruloplasmin rules out Miguel disease. Hx and exam consistent w ET however mild asymmetry on exam, thus will do MRI brain, For the Evaluation and Management of this patient, the level of Medical Decision Making for this visit was determined based on the following: The level of COMPLEXITY AND NUMBER OF PROBLEMS ADDRESSED was , MODERATE] as determined by: MODERATE: undiagnosed new problem with uncertain prognosis. The AMOUNT/COMPLEXITY OF DATA TO REVIEW (reviewed, ordered or call for) was , MODERATE, ] as determined by: katherine HORN (need one of the three): my independent interpretation a test performed by another provider. The level of RISK OF COMPLICATIONS was [, MODERATE,] as determined by: MODERATE: prescription drug management. Thus, the level of medical decision making (based on the lower of the two highest elements) was determined to be [MODERATE. Therefore the appropriate E/[place] encounter [place] , [address]/ . Diagnoses/Problems Assessed Tremor (781.0) (R25.1) Orders Tremor Start: Gabapentin 100 MG Oral Capsule; TAKE 2 CAPSULES 3 TIMES DAILY Copper, Serum; Status:In Progress - Specimen/Data Collected; Done: [id number] Follow-up visit in [address] Follow-up St (more content not included)... Normal Rebls Tobacco Screening.on 023 Fall risk assessment a) No falls within the last year [facility] Work Phone: Tobacco use status CP b) No [facility] Work Phone: COPPER,URINEon 08-03-2022 COPPER,U 24 HR 21 ug/24 hr Normal 3-35 [facility] Comment on above: Result Comment: Test (s) [id number], Urine was developed and its performance characteristics determined by [employer]. It has not been cleared or approved by the Food and Drug Administration. Performed By: #### C OPUR #### [facility] [address] [place] [id number] [facility] [address] [place], [place] [id number] COPPER,URINE 10 ug/L Normal Not Estab. [facility] Comment on above: Result Comment: Dete ction Limit = 1 Performed By: #### C OPUR #### [facility] [address] [place], [place] [id number] [facility] [address] [place], [place] [id number] COPPER/CREAT RATIO 20 ug/g creat Normal 0-49 [facility] Comment on above: Performed By: #### C OPUR #### [facility] [address] [place], [place] [id number] [facility] [address] [place], [place] [id number] CREATININE,URINE 0.50 g/L Normal 0.30-3.00 [facility] Comment on above: Result Comment: Dete ction Limit = 0.10 Performed By: #### C OPUR #### [facility] [address] [place], [place] [id number] [facility] [address] [place], [place] [id number] COPPER,URINEon 07-31-2022 URINE VOLUME PER ML 2139 Normal [facility] Comment on above: Performed By: #### C OPUR #### [facility] [address] [place], [place] [id number] [facility] [address] [place], [place] [id number] CBC AND DIFFERENTIALon 07-27 % AUTOMATED IMMATURE GRAN 0.0 % Normal 0.0 - 0.9 [facility] Comment on above: Result Comment: Shonna ture Granulocyte Count (IG) includes promyelocytes, myelocytes and metamyelocytes but does not include bands. Percent differential counts (%) should be interpreted in the context of the absolute cell counts (cells/L). Performed By: #### C BCDF #### [facility] [address] [place] [address] Basophils (Bld) [#/Vol] 0.01 10*3/uL Normal 0.00 - 0.10 [facility] Comment on above: Performed By: #### C BCDF #### [facility] [address] [place] [address] Basophils/100 WBC (Bld) 0.3 % Normal 0.0 - 2.0 [facility] Comment on above: Performed By: #### C BCDF #### [facility] [address] [place] [address] Eosinophils (Bld) [#/Vol] 0.04 10*3/uL Normal 0.00 - 0.70 [facility] Comment on above: Performed By: #### C BCDF #### [facility] [address] [place] [address] Eosinophils/100 WBC (Bld) 1.0 % Normal 0.0 - 6.0 [facility] Comment on above: Performed By: #### C BCDF #### [facility] [address] [place] [address] Erythrocyte distribution width (RBC) [Ratio] 11.9 % Normal 11.5 - 14.5 [facility] Comment on above: Performed By: #### C BCDF #### [facility] [address] [place] [address] Hematocrit (Bld) [Volume fraction] 37.5 % Normal 36.0 - 46.0 [facility] Comment on above: Performed By: #### C BCDF #### [facility] [address] [place] [address] Hemoglobin (Bld) [Mass/Vol] 12.5 g/dL Normal 12.0 - 16.0 [facility] Comment on above: Performed By: #### C BCDF #### [facility] [address] [place] [address] Lymphocytes (Bld) [#/Vol] 1.08 10*3/uL Low 1.20 - 4.80 [facility] Comment on above: Performed By: #### C BCDF #### [facility] [address] [place] [address] Lymphocytes/100 WBC (Bld) 28.0 % Normal 13.0 - 44.0 [facility] Comment on above: Performed By: #### C BCDF #### [facility] [address] [place] [address] MCHC (RBC) [Mass/Vol] 33.3 g/dL Normal 32.0 - 36.0 [facility] Comment on above: Performed By: #### C BCDF #### [facility] [address] [place] [address] MCV (RBC) [Entitic vol] 86 fL Normal 80 - 100 [facility] Comment on above: Performed By: #### C BCDF #### [facility] [address] [place] [address] Monocytes (Bld) [#/Vol] 0.60 10*3/uL Normal 0.10 - 1.00 [facility] Comment on above: Performed By: #### C BCDF #### [facility] [address] [place] [address] Monocytes/100 WBC (Bld) 15.5 % Normal 2.0 - 10.0 [facility] Comment on above: Performed By: #### C BCDF #### [facility] [address] [place] [address] Neutrophils (Bld) [#/Vol] 2.13 10*3/uL Normal 1.20 - 7.70 [facility] Comment on above: Performed By: #### C BCDF #### [facility] [address] [place] [address] Neutrophils/100 WBC (Bld) 55.2 % Normal 40.0 - 80.0 [facility] Comment on above: Performed By: #### C BCDF #### [facility] [address] [place] [address] NUCLEATED RBC 0.0 /100 WBC Normal 0.0-0.0 [facility] Comment on above: Performed By: #### C BCDF #### [facility] [address] [place] [address] Platelets (Bld) [#/Vol] 213 10*3/uL Normal 150 - 450 [facility] Comment on above: Performed By: #### C BCDF #### [facility] [address] [place] [address] RBC 4.34 x10E12/L Normal 4.00 - 5.20 [facility] Comment on above: Performed By: #### C BCDF #### [facility] [address] [place] [address] WBC (Bld) [#/Vol] 3.9 10*3/uL Low 4.4 - 11.3 [facility] Comment on above: Performed By: #### C BCDF #### [facility] [address] [place] [address] HEPATIC FUNCTION PANELon Albumin [Mass/Vol] 4.3 g/dL Normal 3.4 - 5.0 [facility] Comment on above: Performed By: #### H EPFP #### [facility] [address] [place] [address] ALP [Catalytic activity/Vol] 57 U/L Normal 33 - 110 [facility] Comment on above: Performed By: #### H EPFP #### [facility] [address] [place] [address] ALT [Catalytic activity/Vol] 12 U/L Normal 7 - 45 [facility] Comment on above: Result Comment: Tamela ents treated with Sulfasalazine may generate falsely decreased results for ALT. Performed By: #### H EPFP #### [facility] [address] [place] [address] AST [Catalytic activity/Vol] 14 U/L Normal 9 - 39 [facility] Comment on above: Performed By: #### H EPFP #### [facility] [address] [place] [address] Bilirubin [Mass/Vol] 0.5 mg/dL Normal 0.0 - 1.2 [facility] Comment on above: Performed By: #### H EPFP #### [facility] [address] [place] [address] Bilirubin.indirec t [Mass/Vol] 0.1 mg/dL Normal 0.0 - 0.3 [facility] Comment on above: Performed By: #### H EPFP #### [facility] [address] [place] [address] Protein [Mass/Vol] 6.6 g/dL Normal 6.4 - 8.2 [facility] Comment on above: Performed By: #### H EPFP #### [facility] [address] [place] [address] Basophil percentageon 2021 Bilirubin [Mass/Vol] 0.50 mg/dL 0.20-1.00 [facility] Work Phone: Comment on above: For patients on eltr ombopag therapy, use of Dimension [place] TBIL is not recommended. Chloride [Moles/Vol] 105 mmol/L 98-107 [facility] Work Phone: Glucose [Mass/Vol] 82 mg/dL 74-106 [facility] Work Phone: Potassium [Moles/Vol] 3.8 mmol/L 3.5-5.1 [facility] Work Phone: Protein [Mass/Vol] 7.5 g/dL 6.4-8.2 [facility] Work Phone: Sodium [Moles/Vol] 139 mmol/L 136-145 [facility] Work Phone: Laboratory - Chemistry and C hemistry - challengeon 04-13-2022 ALP [Catalytic activity/Vol] 62 U/L 45-117 [facility] Work Phone: ALT [Catalytic activity/Vol] 28 U/L 13-56 [facility] Work Phone: [phone] CO2 [Moles/Vol] 27.0 mmol/L 21.0-32.0 [facility] Work Phone: Free T4 [Mass/Vol] 1.38 ng/dL 0.76-1.46 [facility] Work Phone: [phone] Globulin (S) [Mass/Vol] 3.6 g/dL 2.2-4.2 [facility] Work Phone: Urea nitrogen/Creatini ne [Mass ratio] 23.9 mg/mg 10-20 [facility] Work Phone: No Panel Informationon 04-13 Estimated GFR (MDRD) Amer 126 mL/min >60 [facility] Work Phone: [phone] Comment on above: GFR Calc Estimated GFR (MDRD) Non-Af Amer 104 mL/min >60 [facility] Work Phone: Comment on above: Non- GFR Calc Thyroid Stimulating Hormone (TSH) 2.54 uIU/mL 0.358-3.74 [facility] Work Phone: Serum or plasma albumin niranjan urement (mass/volume)on 04-13-2022 Albumin [Mass/Vol] 3.9 g/dL 3.2-5.0 [facility] Work Phone: [phone] Serum or plasma albumin/glob ulin mass ratioon 04-13-2022 Albumin/Globulin [Mass ratio] 1.1 {ratio} 0.9-2.4 [facility] Work Phone: Serum or plasma calcium niranjan urement (mass/volume)on 04-13-2022 Calcium [Mass/Vol] 8.7 mg/dL 8.5-10.1 [facility] Work Phone: [phone] Serum or plasma creatinine m easurement (mass/volume)on 04-13-2022 Creatinine [Mass/Vol] 0.75 mg/dL 0.55-1.02 [facility] Work Phone: Comment on above: The validity of the calculated GFR & GFRAA in patients over 70 years has not been determined. Clinical correlation is essential. Serum or plasma urea nitroge n measurement (mass/volume)on 04-13-2022 Urea nitrogen [Mass/Vol] 18 mg/dL 7-18 [facility] Work Phone: Thin prep Papanicolaou smear with manual screeningon 04-13-2022 Thin prep Papanicolaou smear with manual screening 21 U/L 15-37 [facility] Work Phone: [phone] Thin prep Papanicolaou smear with manual screening 7 5-15 [facility] Work Phone: [phone] Basophil percentageon 2021 Ammonia (P) [Moles/Vol] 16.0 umol/L 11-32 [facility] Work Phone: [phone] Basophil percentage 10 ug/L 0-9 [facility] Work Phone: [phone] Comment on above: Detection Limit = 1P hysiologic arsenic concentrations in unexposed individualsare usually less than 10 ug/L; however, the total arsenicconcentrations may be markedly increased after dietaryconsumption of seafood. It may be appropriate to follow upon elevated values with an arsenic test in urine, thepreferred specimen type, in order to determine if thearsenic is a toxic inorganic species. Bilirubin [Mass/Vol] 0.40 mg/dL 0.20-1.00 [facility] Work Phone: Comment on above: For patients on eltr ombopag therapy, use of Dimension [place] TBIL is not recommended. Chloride [Moles/Vol] 105 mmol/L 98-107 [facility] Work Phone: [phone] Glucose [Mass/Vol] 73 mg/dL 74-106 [facility] Work Phone: [phone] Potassium [Moles/Vol] 3.7 mmol/L 3.5-5.1 [facility] Work Phone: [phone] Protein [Mass/Vol] 7.5 g/dL 6.4-8.2 [facility] Work Phone: [phone] Sodium [Moles/Vol] 140 mmol/L 136-145 [facility] Work Phone: [phone] Blood mercury measurement (m ass/volume)on 02-23-2022 Mercury (Bld) [Mass/Vol] 1.0 ug/L 0.0-14.9 [facility] Work Phone: [phone] Comment on above: Environmental Exposu re: <15.0 Occupational Exposure: JOSUE - Inorganic Mercury: 15.0 Detection Limit = 1.0 Erythrocyte sedimentation ra yudith 02-23-2022 ESR (Bld) [Velocity] 6 mm/h 0-30 [facility] Work Phone: [phone] Laboratory - Chemistry and C hemistry - challengeon 02-23-2022 ALP [Catalytic activity/Vol] 62 U/L 45-117 [facility] Work Phone: [phone] ALT [Catalytic activity/Vol] 31 U/L 13-56 [facility] Work Phone: [phone] CO2 [Moles/Vol] 29.0 mmol/L 21.0-32.0 [facility] Work Phone: [phone] Cobalamin (Vitamin B12) [Mass/Vol] 545 pg/mL 211-911 [facility] Work Phone: [phone] Globulin (S) [Mass/Vol] 3.6 g/dL 2.2-4.2 [facility] Work Phone: Urea nitrogen/Creatini ne [Mass ratio] 16.3 mg/mg 10-20 [facility] Work Phone: No Panel Informationon 02-23 Ceruloplasmin 49.6 mg/dL 19.0-39.0 [facility] Work Phone: Estimated GFR (MDRD) Amer 143 mL/min >60 [facility] Work Phone: Comment on above: GFR Calc Estimated GFR (MDRD) Non-Af Amer 119 mL/min >60 [facility] Work Phone: Comment on above: Non- GFR Calc Lead < 1 ug/dL 0-4 [facility] Work Phone: Comment on above: Testing performed by Inductively coupled plasma/MassSpectrometry. Environmental Exposure: WHO Recommendation <20 Occupational Exposure: OSHA Lead Std 40 JOSUE 30 Detection Limit = 1This test was developed and its performancecharacteristics determined by [employer]. It has not beencleared or approved by the Food and Drug Administration. Serum or plasma albumin niranjan urement (mass/volume)on 02-23-2022 Albumin [Mass/Vol] 3.9 g/dL 3.2-5.0 [facility] Work Phone: Serum or plasma albumin/glob ulin mass ratioon 02-23-2022 Albumin/Globulin [Mass ratio] 1.1 {ratio} 0.9-2.4 [facility] Work Phone: Serum or plasma calcium niranjan urement (mass/volume)on 02-23-2022 Calcium [Mass/Vol] 9.1 mg/dL 8.5-10.1 [facility] Work Phone: Serum or plasma creatinine m easurement (mass/volume)on 02-23-2022 Creatinine [Mass/Vol] 0.67 mg/dL 0.55-1.02 [facility] Work Phone: Comment on above: The validity of the calculated GFR & GFRAA in patients over 70 years has not been determined. Clinical correlation is essential. Serum or plasma urea nitroge n measurement (mass/volume)on 02-23-2022 Urea nitrogen [Mass/Vol] 11 mg/dL 7-18 [facility] Work Phone: Thin prep Papanicolaou smear with manual screeningon 02-23-2022 Thin prep Papanicolaou smear with manual screening 23 U/L 15-37 [facility] Work Phone: Thin prep Papanicolaou smear with manual screening 6 5-15 [facility] Work Phone: Thin prep Papanicolaou smear with manual screening 215 ug/dL 80-158 [facility] Work Phone: Comment on above: Detection Limit = 5P erformed at: [employer] [address] [id number] Director: Chicho Camilo MD, Phone: [phone] at: [employer] [address] [place], [place] [id number] Director: Kervin Coates PhD, Phone: [phone] Laboratory - Chemistry and C hemistry - challengeon 01-01-2022 Free T4 [Mass/Vol] 1.24 ng/dL 0.76-1.46 [facility] Work Phone: No Panel Informationon 01-01 Thyroid Stimulating Hormone (TSH) 1.54 uIU/mL 0.358-3.74 [facility] Work Phone: CNOVon 09-23-2019 CNOV Office Visit ([facility] ) BAMBI FRAGOSO ([id number]) 4 F Date Time Provider Department 09/23/19 8:00 PM JULIAN LAINEZ) [facility] During your visit today, we recorded the following information about you: Temperature Pulse Respiration Blood pressure 99.8 degrees 78/minute 16/minute 108/62 Weight 61.7 kg Julian Lainez PA-C 09/23/2019 8:56 PM Signed Subjective HPI Patient presents with a chief complaint of sore throat and right ear pain starting this morning. No congestion, no cough. Mom was concerned about strep. She had a low-grade fever today. No nausea or vomiting. Review of Systems HENT: Positive for ear pain and sore throat. All other systems reviewed and are negative. PAST MEDICAL HISTORY Diagnosis Date - Allergic rhinitis, cause unspecified - Other diseases of trachea and bronchus, not elsewhere classified - Unspecified otitis media Frequently Current Outpatient Medications Medication Sig Dispense Refill - Norethindrone-Eth Estradiol (ORTHO-NOVUM , ,) 1-35 mg-mcg per tablet Take 1 tablet by mouth once daily. - levothyroxine sodium (LEVOTHROID ORAL) Take by mouth. - polyethylene glycol 3350 (MIRALAX) 17 gram/dose powder Take by mouth once daily. - MULTIVITAMIN ORAL Take by mouth. - Amoxicillin 500 mg tablet Take 1 tablet by mouth twice daily for 10 days. 20 tablet 0 No current facility-administered medications for this visit. PAST SURGICAL HISTORY Procedure Laterality Date - PAST SURGICAL HISTORY OF 08/22; 07/23; 11/21 Tubes in ears and adenoidectomy History reviewed. No pertinent family history. Social History Tobacco Use - Smoking status: Never Smoker - Smokeless tobacco: Never Used Substance Use Topics - Alcohol use: Not on file - Drug use: Not on file BP 108/62 Pulse 78 Temp 37.7 ?C (99.8 ?F) (Tympanic) Resp 16 Wt 61.7 kg (136 lb) Objective Physical Exam Constitutional: She is well-developed, well-nourished, and in no distress. HENT: Head: Normocephalic and atraumatic. Right Ear: Tympanic membrane, external ear and ear canal normal. Left Ear: Tympanic membrane, external ear and ear canal normal. Nose: Nose normal. Mouth/Throat: Uvula is midline and mucous membranes are normal. Posterior oropharyngeal edema and posterior oropharyngeal erythema present. No oropharyngeal exudate or tonsillar abscesses. Neck: Normal range of motion. Neck supple. Cardiovascular: Normal rate, regular rhythm and normal heart sounds. Pulmonary/Chest: Effort normal and breath sounds normal. Lymphadenopathy: She has cervical adenopathy. Neurological: She is alert. Skin: Skin is warm and dry. No rash noted. Nursing note and vitals reviewed. ASSESSMENT/PLAN: 1. Strep throat - ICD9: 034.0, ICD10: J02.0 - Rapid Strep positive in the office today - Amoxicillin for 10 days. - Contagious dz precautions discussed- including considered contagious until on antibiotics for 24 hours - The patient should follow up in one week if symptoms persist or worsen - Call back if drooling, increased temperature, symptoms of dehydration and/or still sick in one week - RAPID STREP TEST B/O Julian Lainez PA-C Referring Provider: SELF [200] Allergies As of Date: 09/23/2019 Noted Allergy Reaction environmental [Other] 2006 Comments: Trees, dust mites, cockroach, molds, ragweed Date Reviewed: 09/23/2019 Reviewed by: Cathryn Irizarry Ma - Fully Assessed Reason for Visit: Sore Throat [200] Cmt: right ear pain x this am Primary Visit Diagnosis:Strep throat [J02.0] Order(s):RAPID STREP TEST B/O [[id number]] Order #: [id number] Amoxicillin 500 mg tabletTake 1 tablet by mouth twice daily for 10 days.Disp: 20 tabletRfl: 0 Prescriptions as of 09/23/2019 Sig: ORTHO-NOVUM 1/35 (28) 1 MG-35* Take 1 tablet by mouth once d* LEVOTHROID ORAL Take by mouth. POLYETHYLENE GLYCOL 3350 17 G* Take by mouth once daily. MULTIVITAMIN ORAL Take by mouth. AMOXICILLIN 500 MG TABLET Take 1 tablet by mouth twice * Problem List As Of Date: 09/23/2019 (None) Prescriptions ordered this encounter Disp Refills Start End AMOXICILLIN 500 MG TABLET 20 t* 0 09/23/2019 10/03/2019 Route: ORAL Sig: Take 1 tablet by mouth twice daily for 10 days. Letter Text Encounter Status:Closed by JULIAN LAINEZ PA-C on 09/23/19 [facility] PROGRESSon 09-23-2019 PROGRESS HNO ID: [id number] Author: Julian Lainez (Pa) Service: ? Author Type: Physician Portable Track Line Marker Type: Progress Notes Filed: 09/23/2019 8:56 PM Note Text: Subjective HPI Patient presents with a chief complaint of sore throat and right ear pain starting this morning. No congestion, no cough. Mom was concerned about strep. She had a low-grade fever today. No nausea or vomiting. Review of Systems HENT: Positive for ear pain and sore throat. All other systems reviewed and are negative. PAST MEDICAL HISTORY Diagnosis Date - Allergic rhinitis, cause unspecified - Other diseases of trachea and bronchus, not elsewhere classified - Unspecified otitis media Frequently Current Outpatient Medications Medication Sig Dispense Refill - Norethindrone-Eth Estradiol (ORTHO-NOVUM , ,) 1-35 mg-mcg per tablet Take 1 tablet by mouth once daily. - levothyroxine sodium (LEVOTHROID ORAL) Take by mouth. - polyethylene glycol 3350 (MIRALAX) 17 gram/dose powder Take by mouth once daily. - MULTIVITAMIN ORAL Take by mouth. - Amoxicillin 500 mg tablet Take 1 tablet by mouth twice daily for 10 days. 20 tablet 0 No current facility-administered medications for this visit. PAST SURGICAL HISTORY Procedure Laterality Date - PAST SURGICAL HISTORY OF 08/22; 07/23; 11/21 Tubes in ears and adenoidectomy History reviewed. No pertinent family history. Social History Tobacco Use - Smoking status: Never Smoker - Smokeless tobacco: Never Used Substance Use Topics - Alcohol use: Not on file - Drug use: Not on file BP 108/62 Pulse 78 Temp 37.7 ?C (99.8 ?F) (Tympanic) Resp 16 Wt 61.7 kg (136 lb) Objective Physical Exam Constitutional: She is well-developed, well-nourished, and in no distress. HENT: Head: Normocephalic and atraumatic. Right Ear: Tympanic membrane, external ear and ear canal normal. Left Ear: Tympanic membrane, external ear and ear canal normal. Nose: Nose normal. Mouth/Throat: Uvula is midline and mucous membranes are normal. Posterior oropharyngeal edema and posterior oropharyngeal erythema present. No oropharyngeal exudate or tonsillar abscesses. Neck: Normal range of motion. Neck supple. Cardiovascular: Normal rate, regular rhythm and normal heart sounds. Pulmonary/Chest: Effort normal and breath sounds normal. Lymphadenopathy: She has cervical adenopathy. Neurological: She is alert. Skin: Skin is warm and dry. No rash noted. Nursing note and vitals reviewed. ASSESSMENT/PLAN: 1. Strep throat - ICD9: 034.0, ICD10: J02.0 - Rapid Strep positive in the office today - Amoxicillin for 10 days. - Contagious dz precautions discussed- including considered contagious until on antibiotics for 24 hours - The patient should follow up in one week if symptoms persist or worsen - Call back if drooling, increased temperature, symptoms of dehydration and/or still sick in one week - RAPID STREP TEST B/O Julian Lainez PA-C [facility] Vital Signs Date Time Vital Sign Value Performing Clinician Facility 01-27-2024 13:28-0400 Body height 172.7 cm Camden Bernardo MD Work Phone: [facility] 01-27-2024 13:28-040 Body mass index (BMI) [Ratio] 20.98 kg/m2 Camden Bernardo MD Work Phone: [facility] 01-27-2024 13:28-0400 Body temperature 97.59 [degF] Camden Bernardo MD Work Phone: [facility] 01-27-2024 13:28-040 Body weight 62.6 kg Camden Bernardo MD Work Phone: [facility] 01-27-2024 13:28-0400 Diastolic blood pressure 67 mm[Hg] Camden Bernardo MD Work Phone: [facility] 01-27-2024 13:28-0400 Heart rate 81 /min Camden Bernardo MD Work Phone: [facility] 01-27-2024 13:28-0400 Respiratory rate 18 /min Camden Bernardo MD Work Phone: [facility] 01-27-2024 13:28-0400 Systolic blood pressure 106 mm[Hg] Camden Bernardo MD Work Phone: [facility] 06-25-2023 13:06-0500 Body height 172.7 cm Daquan Oscar MD Work Phone: [facility] 06-25-2023 13:06-0500 Body mass index (BMI) [Ratio] 20.97 kg/m2 Daquan Oscar MD Work Phone: [facility] 06-25-2023 13:06-0500 Body weight 62.55 kg Daquan Oscar MD Work Phone: [facility] 06-25-2023 13:06-0500 Diastolic blood pressure 70 mm[Hg] Daquan Oscar MD Work Phone: [facility] 06-25-2023 13:06-0500 Heart rate 81 /min Daquan Oscar MD Work Phone: [facility] 06-25-2023 13:06-0500 SaO2% (BldA) [Mass fraction] 99 % Daquan Oscar MD Work Phone: [facility] 06-25-2023 13:06-0500 Systolic blood pressure 102 mm[Hg] Daquan Oscar MD Work Phone: [facility] 04-04-2023 10:04-0400 Body height 172.72 cm Alena Archuleta Work Phone: GU[facility]Kdeenmbmgqmt[facility] [address] Work Phone: 04-04-2023 10:04-0400 Body mass index (BMI) [Ratio] 19.77 kg/m2 Alena Archuleta Work Phone: KT-Goqyvxrkkntc-Ofa [facility] [address] Work Phone: 04-04-2023 10:04-0400 Body surface area Derived from formula 1.7 m2 Alena Archuleta Work Phone: UQ-Rrjyiozabcdo-Uho [facility] [address] Work Phone: 04-04-2023 10:04-0400 Body weight 58.97 kg Alena Parkeriff Work Phone: ZO-Gymouisynpdd-Wef [facility] [address] Work Phone: 04-04-2023 10:04-0400 Diastolic blood pressure 67 mm[Hg] Alena Parkeriff Work Phone: BY-Qejlghzgcjns-Uzg [facility] [address] Work Phone: 04-04-2023 10:04-0400 Heart rate 80 /min Alena Archuleta Work Phone: NG-Srvfjxvuxxpf-Xhg [facility] [address] Work Phone: 04-04-2023 10:04-0400 Respiratory rate 18 /min Alena Parkeriff Work Phone: VG-Ddkxlfgauzsj-Wpa [facility] [address] Work Phone: 04-04-2023 10:04-0400 Systolic blood pressure 106 mm[Hg] Alena Archuleta Work Phone: XV-Etyyaacumgjf-Lct [facility] [address] Work Phone: 03-26-2022 10:21-0400 Body height 172.[address] Alena Archuleta Work Phone: [facility] Work Phone: 03-26-2022 10:13-0400 Body mass index (BMI) [Ratio] 19.8 kg/m2 Dr. Alena Archuleta Work Phone: [facility] Work Phone: 03-26-2022 10:13-0400 Body weight 59.[address] Alena Archuleta Work Phone: [facility] Work Phone: 03-26-2022 10:13-0400 Diastolic blood pressure 60 mm[Hg] Dr. Alena Archuleta Work Phone: [facility] Work Phone: 03-26-2022 10:13-0400 Systolic blood pressure 100 mm[Hg] Dr. Alena Archuleta Work Phone: [facility] Work Phone: 10-02-2021 13:50-0500 Body height 172.[address] Alena Archuleta Work Phone: [facility] Work Phone: 10-02-2021 13:50-0500 Body mass index (BMI) [Ratio] 20.9 kg/m2 Dr. Alena Archuleta Work Phone: [facility] Work Phone: 10-02-2021 13:50-0500 Body weight 62.[address] Alena Archuleta Work Phone: [facility] Work Phone: 10-02-2021 13:50-0500 Diastolic blood pressure 60 mm[Hg] Dr. Alena Archuleta Work Phone: [facility] Work Phone: 10-02-2021 13:50-0500 Systolic blood pressure 100 mm[Hg] Dr. Alena Archuleta Work Phone: [facility] Work Phone: Encounters Encounter Date Encounter Type Care Provider Facility Start: 10-23-2024 End: 10-23-2024 ambulatory Alena S Jolliff Facility:[facility] Start: 08-31-2024 End: 08-31-2024 ambulatory Alena S Jolliff Facility:[facility] Start: 05-22-2024 End: 05-22-2024 ambulatory Alena S Jolliff Facility:[facility] Start: 03-19-2024 End: 03-19-2024 ambulatory Alena S Jolliff Facility:[facility] Start: 03-17-2024 End: 03-17-2024 ambulatory Rigoberot Reilly Facility:[facility] Start: 02-28-2024 End: 02-28-2024 Office outpatient visit 25 minutes [facility] KETTLE FRY COOK OPERATOR-SURGICAL SCRUB TECHNOLOGIST Work Phone: [facility] Comment on above: Essential tremor (Pr imary Dx) Start: 02-28-2024 End: 02-28-2024 ambulatory [facility] Start: 01-27-2024 End: 01-27-2024 Office outpatient new 45 minutes Camden Bernardo MD Work Phone: [facility] Comment on above: Copper metabolism di sorder (Multi) Start: 01-27-2024 End: 01-27-2024 ambulatory [facility] Ambulatory Start: 01-09-2024 End: 01-09-2024 ambulatory Alena Archuleta Facility:[facility] Start: 08-29-2023 End: 08-29-2023 ambulatory MAGGIE MONTES [facility] Start: 08-13-2023 End: 08-14-2023 ambulatory ALENA ARCHULETA [facility] Start: 06-25-2023 End: 06-25-2023 ambulatory DAQUAN OSCAR [facility] Start: 06-25-2023 End: 06-25-2023 Office consultation new/estab patient 60 min Daquan Oscar MD Work Phone: [facility] Comment on above: High blood copper le zenobia (Primary Dx) Start: 05-03-2023 AUDIT Alena Archuleta Work Phone: RI-Whqbvmcoc-SLPEN [address] [address] Work Phone: Start: 04-23-2023 Chart Update Alena Archuleta Work Phone: SO-Iridqbxmp-Pwjoxape B [address] Work Phone: Start: 04-23-[address] Maggie Ordoñez ility:[id number] Start: 04-04-2023 Office outpatient ne w 45 minutes Alena Archuleta Work Phone: WK-Epjkmnfab-JGEHH [place] [address] Work Phone: Start: 04-04-2023 Patient encounter procedure Alena Archuleta Work Phone: KN-Uoveuxvtlnmy-Wkwef ll [address] Work Phone: Start: 04-04-[address] Alena Archuleta Facility:[facility] Start: 09-26-[address] Maggie Ordoñez ility:[facility] Start: 04-13-2022 End: 04-13-[address] Alena Archuleta Work Phone: [facility] Work Phone: Start: 04-13-2022 End: 04-13-[address] Alena Archuleta Work Phone: [facility] Start: 03-26-2022 End: 03-26-[address] Alena Archuleta Work Phone: [facility] Start: 02-23-2022 End: 02-23-2022 Patient encounter procedure [facility] Start: 01-01-2022 End: 01-01-[address] [facility] Start: 10-02-2021 End: 10-02-[address] Alena Archuleta Work Phone: [facility] Procedures Date Procedure Procedure Detail Performing Clinician Start: 08-13-2023 COPPER, BLOOD MAGGIE K ILBANE Start: 08-13-2023 THYROXINE, FREE MAGGIE KILBANE Start: 08-13-2023 TRIIODOTHYRONINE, FREE MAGGIE KILBANE Start: 08-13-2023 Thyrotropin [Units/v olume] in Serum or Plasma MAGGIE KILBANE Plan of Treatment Date Care Activity Detail Author Start: 01-22-2052 Zoster Vaccines (1 of 2) Zoster Vaccines (1 of 2) [facility] Start: 02-21-2025 DTaP/Tdap/Td Vaccines (3 - Td or Tdap) DTaP/Tdap/Td Vaccines (3 - Td or Tdap) [facility] Start: 08-13-2024 Thyroid stimulating hormone measurement TSH Level [facility] Start: 04-19-2024 Influenza vaccination Influenza Vaccine (#1) [facility] Start: 02-28-2024 End: 02-28-2024 Telemedicine consultation with patient 02/28/2024 10:30 AM EDT Telemedicine [facility] [address] [place] [address] Frankie Sanchez, KETTLE FRY COOK OPERATOR-SURGICAL SCRUB TECHNOLOGIST [address] [place] [address] [facility] Start: 08-29-2023 FUV, Provider: Maggie Montes, Status: Pen, Time: 10:30 AM FUV, Provider: Maggie Montes, Status: Pen, Time: 10:30 AM QR-Gctnaypttzaa-Lyiuy ll [address] Work Phone: Start: 08-29-2023 End: 08-29-2023 Patient encounter procedure 08/29/2023 10:30 AM EST Office Visit [facility] [address] [facility] [address] [place] [phone] Maggie Montes MD [facility] [address] [facility], [address] [place] [address] [facility] Start: 07-10-2023 End: 07-10-2023 Patient encounter procedure 07/10/2023 8:40 AM EST Office Visit [facility] [address] [facility] [address] [place] [id number] [place] [address] Department [place] [address] [facility] Start: 06-25-2023 NPVHEPATOL, Provider: Daquan Oscar, Status: Pen, Time: 1:00 PM NPVHEPATOL, Provider: Daquan Oscar, Status: Pen, Time: 1:00 PM XI-Mdionymravst-Qtdvz ll [address] Work Phone: Start: 04-19-2023 COVID-19 Vaccine ( season) COVID-19 Vaccine ( season) [facility] Start: 04-19-2023 Influenza vaccination Influenza Vaccine (#1) [facility] Start: 2023 Screening for malignant neoplasm of cervix [facility] Start: 07-26-2022 COVID-19 Vaccine (4 - Moderna series) COVID-19 Vaccine (4 - Moderna series) [facility] Start: 02-23-2022 Heavy metals measurement [facility] Work Phone: Start: 2021 Hepatitis B Vaccines (1 of 3 - 19+ 3-dose series) Hepatitis B Vaccines (1 of 3 - 19+ 3-dose series) [facility] Start: 01-22-2020 Hepatitis C screening Hepatitis C Screening [facility] Start: 04-11-2016 Hepatitis A Vaccines (2 of 2 - 2-dose series) Hepatitis A Vaccines (2 of 2 - 2-dose series) [facility] Start: 08-24-2015 DTaP/Tdap/Td Vaccines (3 - Td or Tdap) DTaP/Tdap/Td Vaccines (3 - Td or Tdap) [facility] Start: 08-24-2015 HPV Vaccines (2 - 2-dose series) HPV Vaccines (2 - 2-dose series) [facility] Start: 2015 Varicella vaccination Varicella Vaccines (1 of 2 - 13+ 2-dose series) [facility] Start: 07-26-2009 MMR Vaccines (1 of 1 - Standard series) MMR Vaccines (1 of 1 - Standard series) [facility] Start: 07-26-2009 Varicella vaccination Varicella Vaccines (1 of 2 - 2-dose childhood series) [facility] Start: 2005 Well Child Visit (WCV) - Annual Well Child Visit (WCV) - Annual [facility] Start: 2002 Hearing Screening (#1) Hearing Screening (#1) [facility] Start: 2002 Hepatitis B Vaccines (1 of 3 - 3-dose series) Hepatitis B Vaccines (1 of 3 - 3-dose series) [facility] Start: 2002 HIV screening HIV Screening [facility] Start: 2002 Lipid panel Lipid Panel [facility] Start: 2002 Thyroid stimulating hormone measurement TSH Level [facility] Start: 2002 Yearly Adult Physical Yearly Adult Physical [facility] Arsenic measurement [facility] Work Phone: Ceruloplasmin [Mass/volume] in Serum or Plasma [facility] Work Phone: Copper [Moles/volume ] in Serum or Plasma [facility] Work Phone: Lead measurement [facility] Work Phone: Mercury measurement, blood [facility] Work Phone: Immunizations Immunization Date Immunization Notes Care Provider Xiomara klein 06-28-2023 influenza virus vaccine, unspecified formulation Frankie Laura KETTLE FRY COOK OPERATOR-SURGICAL SCRUB TECHNOLOGIST Work Phone: [facility] Work Phone: 05-31-2022 Influenza, injectabl e, Madin Loretta Canine Kidney, preservative free, quadrivalent Daquan Oscar MD Work Phone: [facility] Work Phone: 05-31-2022 Pfizer COVID-19 vaccine, bivalent, age 12 years and older (30 mcg/0.3 mL) Daquan Oscar MD Work Phone: [facility] Work Phone: 05-31-2022 influenza virus vaccine, unspecified formulation Daquan Oscar MD Work Phone: [facility] Work Phone: 06-30-2021 influenza, injectabl e, quadrivalent, preservative free Daquan Oscar MD Work Phone: [facility] Work Phone: 08-16-2020 meningococcal polysaccharide (groups A, C, Y and W-135) diphtheria toxoid conjugate vaccine (MCV4P) Daquan Oscar MD Work Phone: [facility] Work Phone: 07-18-2019 influenza, injectabl e, quadrivalent, preservative free Daquan Oscar MD Work Phone: [facility] Work Phone: 05-09-2018 influenza, seasonal, injectable Daquan Oscar MD Work Phone: [facility] Work Phone: 09-02-2017 influenza, injectabl e, quadrivalent, contains preservative Daquan Oscar MD Work Phone: [facility] Work Phone: 10-12-2015 hepatitis A vaccine, adult dosage Daquan Oscar MD Work Phone: [facility] Work Phone: 10-12-2015 hepatitis A and hepatitis B vaccine Daquan Oscar MD Work Phone: [facility] Work Phone: 06-10-2015 influenza, seasonal, injectable Daquan Oscar MD Work Phone: [facility] Work Phone: 02-21-2015 human papilloma viru s vaccine, quadrivalent Daquan Oscar MD Work Phone: [facility] Work Phone: 02-21-2015 meningococcal polysaccharide vaccine (MPSV4) Daquan Oscar MD Work Phone: [facility] Work Phone: 02-21-2015 tetanus toxoid, redu justina diphtheria toxoid, and acellular pertussis vaccine, adsorbed Daquan Oscar MD Work Phone: [facility] Work Phone: 02-21-2015 HPV, unspecified formulation Daquan Oscar MD Work Phone: [facility] Work Phone: 07-28-2013 influenza, seasonal, injectable Daquan Oscar MD Work Phone: [facility] Work Phone: 05-30-2012 influenza, seasonal, injectable Daquan Oscar MD Work Phone: [facility] Work Phone: 07-11-2011 influenza, seasonal, injectable, preservative free Daquan Oscar MD Work Phone: [facility] Work Phone: 06-26-2010 influenza, seasonal, injectable Daquan Oscar MD Work Phone: [facility] Work Phone: 06-28-2009 novel [id number], preservative-free, injectable Daquan Oscar MD Work Phone: [facility] Work Phone: Payers Date Payer Category Payer Unknown [id number] 2024 Self-pay [id number] 2024 Unknown [id number] 2022 Unknown 2022 Unknown [id number] 2002 Unknown [id number] 2.16. [id number] 2002 Unknown [id number] 2.16. [id number] 2002 Unknown [id number] 2.16.8 [id number] 2002 Unknown [id number] 2.16.8 [id number] 2002 Unknown [id number] 2.16.8 [id number] 2002 Unknown [id number] 2.16.8 [id number] 2002 Unknown [id number] 2.16.8 [id number] Unknown [id number] Unknown [id number] 2.16.8 [id number] Unknown [id number] 2.16.8 [id number] Unknown [id number] 2.16.8 [id number] Unknown [id number] 2.16.8 [id number] Unknown [id number] 2.16.8 [id number] Unknown [id number] 2.16.8 [id number] Social History Date Type Detail Facility Start: 10-02-2021 End: 03-26-2022 Tobacco smoking status NHIS Unknown if ever smoked [facility] Work Phone: Start: 2002 Sex Assigned At Female W [facility] Work Phone: Start: 06-25-2023 End: 01-27-2024 History of Social function [facility] Work Phone: Start: 06-25-2023 End: 01-27-2024 Patient Health Questionnaire 2 item (PHQ-2) [Reported] [facility] Work Phone: Start: 2002 Sex Assigned At Not on file [facility] Work Phone: Start: 06-15-2023 End: 01-27-2024 Exposure to SARS-CoV-2 (event) Not sure [facility] Work Phone: Start: 08-29-2023 Tobacco smoking stat us NHIS Never smoked tobacco [facility] Start: 08-29-2023 Tobacco use and exposure Smoke less tobacco non-user [facility] Work Phone: Start: 01-27-2024 End: 02-28-2024 Alcoholic beverage intake Lifetime non-drinker (finding) [facility] Work Phone: Clinical Notes 06-25-2023 to 02-28-2024 Frankie Isabel Sanchez, KETTLE FRY COOK OPERATOR-SURGICAL SCRUB TECHNOLOGIST - 02/28/2024 10:30 AM EDTPatient InstructionsMarkel Jackson MD - 01/27/2024 1:30 PM Efraín Oscar MD - 06/25/2023 1:00 PM ESTPatient Instructions Note Date & Type Note Facility 02-28-2024 History of Present illness Narrative Subjective Bambi Fragoso is a 24 y.o. year old female who presents with Tremors, here for follow up visit. A video visit between the patient (at the originating site) and the provider (at the distant site) was utilized to provide this telehealth service. Verbal consent was requested and obtained from the patient on this date for a telehealth visit. The patient was informed about the telehealth clinical encounter including benefits to avoiding travel, limitations to the assessment, and billing for the service. In person care may be recommended if needed. Telehealth sessions are not being recorded and personal health information is protected. All questions were answered and verbal informal consent was obtained from the patient to proceed. HPI Propranolol is helping, wants to increase the dose sicne room for improvement as tremor is still bothersome, not yet well controlled. Works better than gabapentin which she stopped. Tremor is shaky certain times of the day. Presentations at her job and when nervous the tremor is worse and holding microphones. She is able to eat and do things but shakes and is bothersome. L>R tremor. 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 Telecommunications Network Planner neurologist for elevated copper, rec to see genetic counsler, she met with Dr. Bernardo at 01/27/24. It is very unlikely that she has a disturbed metabolism of copper since her ceruloplasmin is high which is the opposite of what we would expect. We communicated with the patient that if she wants to lower her Copper levels she can take Zinc supplements can help lower copper levels since zinc will compete with the body's absorption of copper (PMID 1861515). If patient desires she can get copper levels together with Lfts and CBC in five years. Plan -Can take zinc supplements -If patient desires she can get blood copper levels together with Lfts and CBC in five years Denies plans or chance for . On control. We discussed category of propranolol. Meds: Propranolol 20mg am and afternoon SE: denies dizziness, fatigue, low BP or low HR Current Outpatient Medications: desogestreL-ethinyl estradioL (Apri) 0.15-0.03 mg tablet, Take 1 tablet by mouth once daily., Disp: , Rfl: levothyroxine (Synthroid, Levoxyl) 50 mcg tablet, Take 1 tablet (50 mcg) by mouth once daily in the morning. Take before meals. TAKE DIRECTED, Disp: , Rfl: propranolol (Inderal) 20 mg tablet, Take 1 tablet (20 mg) by mouth 2 times a day., Disp: 60 tablet, Rfl: 5 Objective There were no vitals filed for this visit. Physical Exam L spiral 2+ R spiral 1 + Handwriting without tremor Assessment/Plan Bambi Fragoso is a right handed 23 y.o. year old female history of hypothyroidism, childhood asthma (well-controlled without medication), heavy menses on oral contraceptives, seen in f/u for ET. She has had good response to propranolol but would like to increase as tremor is still bothersome and tolerating without SE so will increase as tolerated. She stopped gabapentin 300mg TID which did not provide much benefit. She has previously completed blood work including copper which was elevated with unknown etiology, had further evaluation with neurology/toxicology specialist in [place] who recommended genetics c/s. She has seen Dr. Bernardo at 01/27/24 who noted that her ceruloplasmin was elevated and is expected to be low in disorders of copper metabolism so rec zinc to help lower levels and recheck labs in 5 yrs. Diagnoses and all orders for this visit: Essential tremor - propranolol (Inderal) 20 mg tablet; Take 1.5 tablets (30 mg) by mouth 2 times a day. #Increase propranolol to 1.5 tabs (30mg) 2 times a day Side effects include but are not limited to fatigue, dizziness, low heart rate, constipation, depression, and impotence. Let me know if these or any other side effects occur. We discussed propranolol being category C The US Food and Drug Administration (FDA) classifies propranolol, a beta mitch, as a category C drug. This means that animal studies have shown adverse effects on fetuses, but there aren't enough well-controlled human studies to determine safety. Propranolol can be used during if there are no alternatives and the benefits outweigh the risks.--would need to discuss if OK to continue with OBGYN before becoming . #Follow up in [address] Simon Sanchez, TORI-C Adult/Gerontological Nurse Practitioner [facility], Department of Neurology Neurological [facility] [address] [id number] documented in this encounter [facility] Work Phone: 02-28-2024 Instructions RIVAS Tran - 02/28/2024 10:30 AM EDT #Increase propranolol to 1.5 tabs (30mg) 2 times a day Side effects include but are not limited to fatigue, dizziness, low heart rate, constipation, depression, and impotence. Let me know if these or any other side effects occur. We discussed propranolol being category C The US Food and Drug Administration (FDA) classifies propranolol, a beta mitch, as a category C drug. This means that animal studies have shown adverse effects on fetuses, but there aren't enough well-controlled human studies to determine safety. Propranolol can be used during if there are no alternatives and the benefits outweigh the risks.--would need to discuss if OK to continue with OBGYN before becoming . #Follow up in [address] Simon Sanchez NP-C Adult/Gerontological Nurse Practitioner [facility], Department of Neurology Neurological [facility] [address] [place] [address] documented in this encounter [facility] Work Phone: 01-27-2024 History of Present illness Narrative Genetics Department [address] [place] [address] P: [phone] F: [phone] Metabolism clinic History of present Illness Bambi Fragoso is a 24 year old F that comes to the [place] [facility] clinic in company of her mother Evans Fragoso with a PMH of essential tremor (followed by neurology), hypothyroidism, childhood asthma (well-controlled without medication), heavy menses on oral contraceptives. Presents to the metabolism clinic to know more information about her elevated copper levels and know if there's any follow-up test that needs to be done. She would also like to know how the elevated copper levels are associated with her tremor. Both Ms Lew and her mother refer that as part of workup for her tremors they tested for heavy metals which found an elevated copper. Patient also had unremarkable brain MRI on 04/2023. . She has also reportedly seen an senior materials analyst who did not find Markham Robina rings. The patient confirmed that she has seen ophthalmology. Her tremors started approximately when she was 15 years old. She was previously on gabapentin and propranolol for prophylaxis. Propranolol has helped more than gabapentin. Ms Lew refers that her hand tremor gets worse in situations where there is more adrenaline ie talking in public. Ms Fragoso has not noticed any other neurological symptoms. She does not refer major illness but had two episodes of strep throat during the past year. Family History The family denies stillbirths, deafness, blindness, congenital heart defects or any genetic syndrome in the family. The family is in good health. They are from [place], equ[place] gu[place] descent. There is no consanguinity in the family. There is no Anglican ancestry. There has not been any genetic testing in the family Family history is most remarkable for Essential tremor in paternal grandfather Hyper mobile Beena Danlos in Full Sister and Mother. Gilbert Syndrome in Maternal Uncle. Maternal uncle with colon cancer diagnosed at 48 years old Prostate cancer in father diagnosed at 58 Prostate cancer in paternal uncle diagnosed at 60. Paternal first cousin with mild ASD. Approximately three first cousins with cystic fibrosis and kodi ataxia. Please find the pedigree attached to this note Medication Documentation Review Audit Reviewed by Yenni Broussard MA (Ventilating Engineer) on 01/27/24 at 1329 Medication Order Taking? Sig Documenting Provider Last Dose Status desogestreL-ethinyl estradioL (Apri) 0.15-0.03 mg tablet [id number] Yes Take 1 tablet by mouth once daily. Historical Provider, Taking Active gabapentin (Neurontin) 100 mg capsule [id number] No Take 2 capsules (200 mg) by mouth 3 times a day. Historical Provider, Not Taking Active levothyroxine (Synthroid, Levoxyl) 50 mcg tablet [id number] Yes Take 1 tablet (50 mcg) by mouth once daily in the morning. Take before meals. TAKE DIRECTED Historical Provider, Taking Active propranolol (Inderal) 20 mg tablet [id number] Yes Take 1 tablet (20 mg) by mouth 2 times a day. Caesar Aldana MD Taking Active Copper Component Ref Range & Units 5 mo ago (08/13/23) 9 mo ago (04/24/23) Copper 80.0 - 155.0 ug/dL 228.6 High 248.6 High CM February 2022 Ceruloplasmin 49.6 mg/dL 19.0-39.0 Copper, Urine Component Ref Range & Units 1 yr ago Urine Volume 2,139 Copper, Urine Not Estab. ug/L 10 Copper, 24H Urine 3 - 35 ug/24 hr 21 Creatinine,U 0.30 - 3.00 g/L 0.50 Copper/Creat Ratio, Urine 0 - 49 ug/g creat 20 Component Ref Range & Units 1 yr ago WBC 4.4 - 11.3 x10E9/L 3.9 Low nRBC 0.0 - 0.0 /100 WBC 0.0 RBC 4.00 - 5.20 x10E12/L 4.34 Hemoglobin 12.0 - 16.0 g/dL 12.5 Hematocrit 36.0 - 46.0 % 37.5 MCV 80 - 100 fL 86 MCHC 32.0 - 36.0 g/dL 33.3 Platelets 150 - 450 x10E9/L 213 RDW 11.5 - 14.5 % 11.9 Neutrophils % 40.0 - 80.0 % 55.2 Immature Granulocytes %, Automated 0.0 - 0.9 % 0.0 Comment: Immature Granulocyte Count (IG) includes promyelocytes, myelocytes and metamyelocytes but does not include bands. Percent differential counts (%) should be interpreted in the context of the absolute cell counts (cells/L). Lymphocytes % 13.0 - 44.0 % 28.0 Monocytes % 2.0 - 10.0 % 15.5 Eosinophils % 0.0 - 6.0 % 1.0 Basophils % 0.0 - 2.0 % 0.3 Neutrophils Absolute 1.20 - 7.70 x10E9/L 2.13 Lymphocytes Absolute 1.20 - 4.80 x10E9/L 1.08 Low Monocytes Absolute 0.10 - 1.00 x10E9/L 0.60 Eosinophils Absolute 0.00 - 0.70 x10E9/L 0.04 Basophils Absolute 0.00 - 0.10 x10E9/L 0.01 Physical exam General: In no distress, sleeping. No overt syndromic features. Pleasant, conversant HEENT: No lymphadenopathy, EOMI, PERRL Nose: normal columella and nares Mouth/Chin:No micrognathia, retrognathia or cleft palate. Chest Cardio: RRR, no murmurs Chest/Lungs: Clear to auscultation bilaterally Abdomen: soft, depressible an non distended Skin: No hypopigmented spots Extremities: no edema or rashes Neuro: No focal deficits, Cranial nerves grossly intact Assessment Bambi Fragoso is a 24 year old F that comes to the [place] [facility] in company of her mother Evans Fragoso with a PMH of essential tremor (followed by neurology), hypothyroidism, childhood asthma (well-controlled without medication), heavy menses on oral contraceptives. Presents to the metabolism clinic for clarification on what does the elevated copper levels mean for her health and if its related to her essential tremor. Family history is most remarkable for essential tremor in grandfather. Family history is not remarkable for essential tremor in maternal grandfather. History is most remarkable for isolated tremor that worsens with adrenaline ie speaking in public and that improves while on propanolol. Ms fragoso symptoms together with the family history suggests essential tremor. Labs are remarkable for elevated copper at 228 and 248 with elevated ceruloplasmin and normal 24 hr urine copper. CBC without evidence of anemia Regarding her copper levels we discussed the following topics with the patient. Levels of copper fluctuate if there is an illness or by taking specific medications To better measure the levels of copper in the body we rely more on the ceruloplasmin levels compared to the copper levels as the former are more indicative of the copper status (PMID [id number]). Ceruloplasmin itself is formed by joining copper to the protein called apo ceruloplasmin. Two examples of genetic diseases of copper metabolism include Miguel's and Menkes disease. Miguel's disease is caused by bi allelic pathogenic mutations in the ATP7B protein which functions to transfer copper to apo ceruloplasmin which then converts to ceruloplasmin once loaded with copper. Its expected that in this disease there will be low ceruloplasmin levels. Menkes disease is caused by by X-linked recessive mutations that disrupt the ATP7A protein which causes accumulation of copper in the gut. Because ceruloplasmin can't be formed at a normal rate its levels are low. When copper accumulates in the body it leads to liver disease, anemia and it deposits in the brain and eyes. We reviewed the patients MRI with her It is very unlikely that she has a disturbed metabolism of copper since her ceruloplasmin is high which is the opposite of what we would expect. We communicated with the patient that if she wants to lower her Copper levels she can take Zinc supplements can help lower copper levels since zinc will compete with the body's absorption of copper (PMID 6958227). If patient desires she can get copper levels together with Lfts and CBC in five years. Plan -Can take zinc supplements -If patient desires she can get blood copper levels together with Lfts and CBC in five years Renato vidal PGY2 Medicine/Genetics Patient seen and discussed with Dr. Bernardo Preferred communication [employer] messaging documented in this encounter [facility] Work Phone: 06-25-2023 History of Present illness Narrative HEPATOLOGY NEW PATIENT VISIT June 25, 2023 Dr. Alena Archuleta Patient Name: BAMBI FRAGOSO Date of : [address] Archuleta, I had the pleasure of seeing Bambi Fragoso (along with her mother) for consultation in the [facility] ([facility] office). History and physical examination was performed. Pertinent available laboratory, imaging, pathology results were reviewed. She missed her 03/05/2023 appointment with me. History of Present Illness: The patient is a 23 year old white female who is apparently referred for evaluation of an elevated serum copper level. The patient was apparently having serum copper levels drawn and they were found to be elevated. Even though the LFTs were normal and the 24-hour urine copper was not elevated, the patient was referred to me for further evaluation. She was seen by neurology for hand tremors. They apparently repeated the serum copper. They had her see an senior materials analyst who did not notice any Markham Robina rings. In addition, her ceruloplasmin level was high. Again, she was still referred to me for further evaluation of this. She was basically told to come see me because the other doctors did not know how to approach the elevated copper, even though they did not think she had a primary liver issue. She was also apparently referred to a case making machine operator and a client director although they have had difficulty getting appointments with these 2 specialists. In addition to hand tremors, she has had a very long history of constipation requiring laxatives for many years. The patient denied any past history of acute hepatitis or jaundice. She has never had any manifestations of liver disease including no jaundice, ascites, hepatic encephalopathy, or variceal bleeding. She denied ever having a liver biopsy. She presented today for evaluation. She denied any specific liver-related complaints. She does have a hand tremors that are somewhat better with gabapentin. Past Medical/Surgical History: Asthma, tremor, hypothyroidism, heavy menses, elevated copper, hemorrhoids, Raynaud's syndrome, ear tube placement. Family History: Father had prostate cancer. Sister and mother had Beena-Danlos syndrome. Grandfather had heart disease. Maternal uncle has Gilbert's disease. Paternal grandfather had cirrhosis of unclear etiology. Paternal uncle had colon cancer. Social History: She denied tobacco use. She denied drug use. She denied alcohol use. She denied blood transfusions. She denied tattoos. She is a student working on her masters degree. Review of systems: As noted above. She has the hand tremors as noted above. She has constipation. No fever, chills, weight loss, visual changes, auditory changes, shortness of breath, chest pain, abdominal pain, GI bleeding, diarrhea, depression, dysuria, hematuria, musculoskeletal issues, or rash. Physical Examination: General Appearance: alert and in no acute distress. HEENT: oropharynx without lesions. Anicteric sclerae. No obvious evidence of Markham Robina rings. Neck supple, nontender, without adenopathy, thyromegaly, or JVD. Lungs clear to auscultation and percussion. Heart RRR without murmurs, rubs, or gallops. Abdomen: Soft, nontender, bowel sounds positive, without obvious ascites. Liver and spleen not palpable. Extremities full ROM, no atrophy, normal strength. No edema. Skin no specific lesions. Neurological exam nonfocal, alert and oriented. No asterixis. No spider angiomata, or palmar erythema. Labs 04/24/2023 Copper 248.6 (elevated). Labs 07/31/2022 24-hour urine copper 21 mcg. Labs 07/27/2022 WBC 3.9, hemoglobin 12.5, platelets 213, protein 6.6, albumin 4.3, alk phos 57, bilirubin 0.5, AST 14, ALT 12. Labs 04/13/2022 Copper 185, ceruloplasmin 44.9. Labs 02/23/2022 ammonia 16, vitamin B12 545, ESR 6, glucose 73, creatinine 0.67, sodium 140, protein 7.5, albumin 3.9, alk phos 62, bilirubin 0.4, AST 23, ALT 31, lead undetectable, arsenic 10, copper 215, mercury 1, ceruloplasmin 49.6. MRI of the brain 04/23/2023 revealed an essentially normal study. Assessment/Plan: Elevated serum copper Apparent concern for Miguel disease. The patient is referred to me for evaluation of the above issues. In fact, we do not use serum copper levels to screen for Miguel disease. They are unreliable and are only consistently elevated in patients with fulminant Miguel disease (which this patient obviously does not have). In fact, this patient's LFTs and 24-hour urine copper are unrevealing. The better way to screen for Miguel disease (not that it would be indicated in this case) would be a ceruloplasmin level. In fact, her ceruloplasmin levels have been consistently high which strongly argues against Miguel's disease. She has also reportedly seen an senior materials analyst who did not find Markham Robina rings. In essence, all patients with neurologic Miguel's will have Markham Robina rings. Despite all of this evidence against Miguel's disease, the patient and her family have been concerned enough to see multiple doctors due to a concern for Miguel's disease. I reiterated to them that none of this data supports Miguel's. I did encourage them to see a case making machine operator and clinical client director to do additional work-up. It may be that she has some very rare genetic disease that results in copper overload. Again, if these providers feel that a liver biopsy and/or genetic Miguel's disease would be beneficial, they can order this or call us and ask us to order such tests. Either way, I still suspect that the main therapy if the other providers feel that the high copper levels are potentially detrimental would be that they can either treat her with zinc or with chelation with trientine or D-penicillamine. In the absence of any liver issues, I would not be the one managing those medications in this case. She can follow-up with Dr. Qasim Mckoy for her GI needs. Thank you for allowing me to participate in the care of this patient. Please feel free to contact me with any questions regarding their care. Sincerely, Daquan Oscar MD, FAASLD, FACG. Videogame Designer, Hepatology Senior Attending Physician [facility] semiconductor engineer Division of Gastroenterology and Liver Disease [facility] [employer] [address] [place] [id number] . Cc: Dr. Qasim Mckoy ([facility]) cc: Dr. Maggie Montes This document was generated with a computerized dictation system. Because of this, there could be errors in grammar and/or content. documented in this encounter [facility] Work Phone: 06-25-2023 Instructions Daquan Oscar MD - 06/25/2023 1:00 PM EST I would suggest seeing a case making machine operator and a clinical client director. If they feel that a liver biopsy or a genetic Wilsons disease test would be warranted, please call us back and we can help order these. Personally, I would just recommend that they or your neurologist consider treating the elevated copper with either zinc or copper chelators. documented in this encounter [facility] Work Phone: Chief complaint Narrative - Reported tremorNeurologic Evaluation. [id number] Work Phone: Chief complaint Narrative - Reported tremorNeurologic Evaluation. 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 They are also worried about Miguel disease. She was accompanied by her mother. * She says that tremor started in eighth grade (16 to 17 years old), left worse than right hand. She did not notice any tremor in her voice or head shaking. Her tremor seems to be worse when she is stressed. This is affecting her activities of daily living, namely she has trouble pouring water and holding plates; feeding tube is troublesome for her. 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 * She thinks she was in small font. Her memory is really good. Her mood is pretty good overall, but it would be bad when she is off her Synthroid pills. Denies psychosis or psychiatric issues. She said her gait is good and there was no issue with walking or running; mom added that learning to ride a bike was hard for her. She denies any anosmia. * She sleeps 7 hours a night, occasionally having vivid dreams. She says her sister complains that Bambi would elbow her sister a lot while sleeping. The whole family except for Bambi sleepwalks. * She has been battling constipation since she was a toddler -she had anal fissure and had been taking MiraLAX since then. She is to have a bowel movement about 4 times a month. She recently switched to Metamucil and has bowel movements 4 times a week. * She denies any urinary issues. Gets lightheaded in the morning which improves with 4 stools. She tries to avoid caffeinated drinks because they make tremor worse. * She denies having any liver issues other than jaundice at which quickly returned normal. Normal urine color, denies abdominal pain except for when very constipated. * She went to a neurologist at [facility], and was told that her Copper level was high. The neurologist thinks that she has essential tremor and started her on gabapentin 100 mg 3 times daily about a year ago. She said this is helpful but did not seem to cut it in taking a medication 3 times a day is fairly difficult; she notes that the timer for medications. She denies any side effect from gabapentin. * She was also sent to GI in July 2022 to assess for Miguel disease given the high copper level. GI obtained a 24-hour urine and level was normal. Her serum ceruoplasmin was high. Because she had blood in her stool, she had a colonoscopy which found benign polyps and hemorrhoids. The plan is to repeat colonoscopy every 5 years. * She was also sent to endocrine who diagnosed her with hypothyroidism. She was on Synthroid 50 mcg daily which was recently increased to 62.5 mcg. * ROS: All systems reviewed and negative except for mentioned in HPI * Past medical history: Hypothyroidism, benign polyps, childhood asthma (well- controlled), many ear infections as a child requiring speech therapy for hearing loss (recovered), heavy menses (on OCP); pityriasis rosea like skin eruption; Reich * Past surgical history: Ear tubes and wisdom teeth removal * Social history: In college, 4.0 student, denies tobacco, alcohol, or drug use. 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 * Family history: Erliz's Danlos in mother and brother. Maternal grandfather with tremor (and not Parkinson per mother; for shaking was noticed in his 40s when he was nervous); paternal grandfather with tremor (; unclear diagnosis). Unclear whether there is Parkinson disease in the family.Everyone in the family sleepwalks except for Bambi. * Medications: Zyrtec 10 mg daily, OCP, gabapentin 100 mg 3 times daily, Synthroid 62.5 mcg daily, multivitamins, Metamucil * Allergies: On antibiotic but unsure which one (reaction is hives) [id number] 6 [facility] Work Phone: History of Present illness Narrative* Bambi is a 23-year-old right-handed girl with history of hypothyroidism, childhood asthma (well-controlled without medication), heavy menses on oral contraceptives who presented to movement disorder clinic with concern for tremor. They are also worried about Miguel disease. She was accompanied by her mother. * She says that tremor started in eighth grade (16 to 17 years old), left worse than right hand. She did not notice any tremor in her voice or head shaking. Her tremor seems to be worse when she is stressed. This is affecting her activities of daily living, namely she has trouble pouring water and holding plates; feeding tube is troublesome for her. 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 * She thinks she was in small font. Her memory is really good. Her mood is pretty good overall, but it would be bad when she is off her Synthroid pills. Denies psychosis or psychiatric issues. She said her gait is good and there was no issue with walking or running; mom added that learning to ride a bike was hard for her. She denies any anosmia. * She sleeps 7 hours a night, occasionally having vivid dreams. She says her sister complains that Bambi would elbow her sister a lot while sleeping. The whole family except for Bambi sleepwalks. * She has been battling constipation since she was a toddler -she had anal fissure and had been taking MiraLAX since then. She is to have a bowel movement about 4 times a month. She recently switched to Metamucil and has bowel movements 4 times a week. * She denies any urinary issues. Gets lightheaded in the morning which improves with 4 stools. She tries to avoid caffeinated drinks because they make tremor worse. * She denies having any liver issues other than jaundice at which quickly returned normal. Normal urine color, denies abdominal pain except for when very constipated. * She went to a neurologist at [facility], and was told that her Copper level was high. The neurologist thinks that she has essential tremor and started her on gabapentin 100 mg 3 times daily about a year ago. She said this is helpful but did not seem to cut it in taking a medication 3 times a day is fairly difficult; she notes that the timer for medications. She denies any side effect from gabapentin. * She was also sent to GI in July 2022 to assess for Miguel disease given the high copper level. GI obtained a 24-hour urine and level was normal. Her serum ceruoplasmin was high. Because she had blood in her stool, she had a colonoscopy which found benign polyps and hemorrhoids. The plan is to repeat colonoscopy every 5 years. * She was also sent to endocrine who diagnosed her with hypothyroidism. She was on Synthroid 50 mcg daily which was recently increased to 62.5 mcg. * ROS: All systems reviewed and negative except for mentioned in HPI * Past medical history: Hypothyroidism, benign polyps, childhood asthma (well- controlled), many ear infections as a child requiring speech therapy for hearing loss (recovered), heavy menses (on OCP); pityriasis rosea like skin eruption; Reich * Past surgical history: Ear tubes and wisdom teeth removal * Social history: In college, 4.0 student, denies tobacco, alcohol, or drug use. 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 * Family history: Erler's Danlos in mother and brother. Maternal grandfather with tremor (and not Parkinson per mother; for shaking was noticed in his 40s when he was nervous); paternal grandfather with tremor (; unclear diagnosis). Unclear whether there is Parkinson disease in the family.Everyone in the family sleepwalks except for Bambi. * Medications: Zyrtec 10 mg daily, OCP, gabapentin 100 mg 3 times daily, Synthroid 62.5 mcg daily, multivitamins, Metamucil * Allergies: One antibiotic but unsure which one (reaction is hives) [id number] [facility] Work Phone: Summary Purpose Family History No Family History Records Found Relationship Condition Age at Onset Recorded Date/T caitlyn mother Beena-Danlos syndrome Unknown father Malignant neoplasm of prostate Unknown grandfather Cardiac disease Unknown sister Beena-Danlos syndrome Unknown Advance Directives No Advanced Directives Records FoundNo Advanced Directives Records FoundNo Advanced Directives Records FoundNo Advanced Directives Records FoundNo Advanced Directives Records FoundNo Advanced Directives Records Found Chief Complaint and Reason for Visit 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) Reason for Visit Menorrhagia with reg ular cycle Chief Complaint 6 MO FU Reason for Visit Menorrhagia with reg ular cycle Additional Source Comments INFORMATION SOURCE (unrecogn ized section and content) DATE CREATED AUTHOR 09/23/2019 [facility] DATE CREATED AUTHOR AUTHOR'S ORGANIZ ATION 04/29/2023 [facility] DATE CREATED AUTHOR AUTHOR'S ORGANIZ ATION 05/05/2023 [facility] DATE CREATED AUTHOR AUTHOR'S ORGANIZ ATION 11/28/2023 [facility] DATE CREATED AUTHOR AUTHOR'S ORGANIZ ATION 07/16/2024 [facility] DATE CREATED AUTHOR AUTHOR'S ORGANIZ ATION 10/25/2024 [facility] Goals (unrecognized section and content) Goals may be documented in a n alternate sectionGoals may be documented in an alternate sectionGoals may be documented in an alternate section Care Teams (unrecognized sec tion and content) Benefits Counselor Relationship Specialty Start Date End Date Alena Archuleta MD Jayson Carter [address] [place] [address] PCP - General 04/04/23 Benefits Counselor Relationship Specialty Start Date End Date Alena Archuleta MD PCP - General 04/04/23 Benefits Counselor Relationship Specialty Start Date End Date Alena Archuleta MD PCP - General 04/04/23 Reason for Visit (unrecogniz ed section and content) Reason Comments New Patient Visit Specialty Diagnoses / Procedures Referred By Contjonny t Referred To Contact Genetics Diagnoses Copper metabolism disorder (Multi) Maggie Montes MD [facility] [address] [facility], [address] [address] Referral ID Status Reason Start Date Expiration Date Visits Requested Visits Authorized [id number] Authorized Specialty Services Required 11/27/2023 11/26/2024 1 1 Reason Comments Tremors FOR RECORDS PERTAINING TO PATIENTS WHO ARE OR HAVE BEEN ENROLLED IN A CHEMICAL DEPENDENCY/SUBSTANCEABUSE PROGRAM, SOME INFORMATION MAY BE OMITTED. This clinical summary was aggregated from multiple sources. Caution should be exercised in using it in the provision of clinical care. This summary normalizes information from multiple sources, and as a consequence, information in this document may materially change the coding, format and clinical context of patient data. In addition, data may be omitted in some cases. CLINICAL DECISIONS SHOULD BE BASED ON THE PRIMARY CLINICAL RECORDS. [employer] provides no warranty or guarantee of the accuracy or completeness of information in this document.
[2025-02-12 00:07] LABS: Copper, Serum or Plasma 185 ug/dL (80-158); Zinc, Plasma or Serum 80 ug/dL (44-115)
== END | disposition home or self-care (01) ==
LOC: MTLAB 10:28
PROVIDERS: PCP Family Medicine; Referring Provider Family Medicine; Visit Provider Family Medicine
DX: R78.79 Finding of abnormal level of heavy metals in blood (principal); E03.9 Hypothyroidism, unspecified
CPT/HCPCS: 36415; 80053; 82390; 82525; 84439; 84443; 84480; 84481; 84630; 85025